=== PATIENT | female | born 1940 | race Caucasian/White ===

== ENCOUNTER 2020-03-30 12:30 | Outpatient (RCR) | payer MEDICARE, MEDICAID, SELFPAY ==
--- NOTE | 2020-01-09 11:33 | PTOPEVAL ---
PHYSICAL THERAPY EVALUATION AND PLAN OF CARE 01-09-2020 Thank you for referring Jud Erwin to [facility], for the diagnosis of B LE lymphedema.? She is scheduled to be seen for therapy? 3 x/week for 6 weeks. Please review, sign, date and return this plan of care DEL. I agree with and certify that the following plan of care is medically necessary. Referring Physician Date Referring Provider: ISAEL DianaPT Outpatient Evaluation Start: 01/09/20 10:22 Document 01/09/20 10:15 NUNO (Rec: 01/09/20 11:33 NUNO [id number]) Outpatient Past Medical History Past Medical History Source of Past Medical History Patient Neurological History Hx Neurological Disorders No Significant History Cardiovascular History Hx Atrial Fibrillation Yes Hx Coronary Stent Yes: 2015 Hx Hypertension Yes Hx Myocardial Infarction Yes Hx Pacemaker Yes: Feb 2019 Hx Other Cardiac Disorders Yes: follows with cardiology- saw recently Respiratory History Hx Sleep Apnea Yes: CPAP for sleeping Hx Other Respiratory Disorders Yes: SOB with exertions due to a-fib Gastrointestinal History Hx Cholecystectomy Yes Genitourinary History Hx Renal Disease Yes: kidney failure--follows with kidney dr Hx Other Genitourinary Disorders Yes: over active bladder, take med Musculoskeletal History Hx Back Pain Yes: spinal stenosis, arthritis Hx Fractures Yes: L tibia with cast/non surgery Hx Other Musculoskeletal Disorders Yes: B hip pain due to arthritis Endocrine History Hx Diabetes Yes: meds HEENT History Hx Other HEENT Disorders Yes: wear glasses Reproductive History Hx Hysterectomy Yes Other History Hx Other Surgeries Yes: L vein surgery of upper leg- vein closed Evaluation Information Problem Diagnosis B LE lymphedema Onset June 2019 Prior Level of Function Activity Level (Last 3 Months) Occupation retired Cooking Yes Cleaning No Laundry Yes Shopping No Driving No Home Setting Home Type Apartment,Single Level Environmental Barriers Stairs, None Living Situation Alone Support Available Hired Assistance,Physical Assist Available Mobility Assistive Devices (Used Last 3 Walker, Wheeled
--- NOTE | 2020-01-15 15:40 | PCPTNOTE ---
pt called and cancelled due to no transportation .
--- NOTE | 2020-01-17 14:41 | PCPTNOTE ---
Patient no showed for today's appointment. Called and left a voicemail reminding patient to call if she can not make hr appointment.
--- NOTE | 2020-01-27 08:36 | PCPTNOTE ---
pt called and canceled today's appt due to being ill;
--- NOTE | 2020-01-29 16:34 | PCPTNOTE ---
pt called and canceled, stated she ill; saw her dr and flu was negative, awaiting COVID testing results;
--- NOTE | 2020-01-30 13:30 | PCPTNOTE ---
pt called and canceled 2 weeks for appointments due to being positive for COVID;
--- NOTE | 2020-02-25 13:12 | PTOPEVAL ---
PHYSICAL THERAPY RE-EVALUATION AND UPDATED PLAN OF CARE 02-25-2020 Mrs. Erwin has received 5 PT sessions, from January 08 to today. She missed 4 weeks of treatment due to having COVID. She has weakness in both legs--L is weaker than the R. With transfer supine<> sit she requires assist with her legs. And with sit to stand, has to use her wheeled walker and both UE's. In supine, she is able to perform SLR on her R with 4 reps and unable to lift her L LE off mat. Her L knee active flexion is 75'. She continues to use the wheeled walker for ambulation and is SOB with ~ 100' of walking. With Jud's circumferential measurements of her LE's: R is 12.5 cm larger and L is .2 cm less. The goals were not achieved, due to her being ill and not able to attend therapy. PT is to continue treatment, 3x/week for 6 weeks. Thank you for referring Jud Erwin to [facility].? Please review, sign, date and return this updated plan of care [facility]. I agree with and certify that the following plan of care is medically necessary. Referring Physician Date Referring Provider: Marco Gordon PT Outpatient Re-Evaluation Document 02/25/20 12:32 NUNO (Rec: 02/25/20 13:09 NUNO [id number]) Subjective Information Jud reports: have Query Text:As Reported By Patient/ recovered from COVID, but Family still weak; legs are swollen- -ate some salty meat and did not take her water pill this AM, since coming here did not want to have to go to bathroom ; Pain Assessment Timing of Pain Assessment Timing of Pain Assessment Assessment Self Report Self Report Pain Level 0 Pain Score Pain Score 0: Self Report Lymphedema Evaluation Skin Inspection Location Left Lower Extremity,Right Lower Extremity Skin Observations Absence of Leg Hair, Hyperkeratosis, Hyperpigmentation,Hyperplasia, Hypoplastic, Concave Toes, Lipedema,Obesity,Shiny, Dry, Pale Skin,Swollen, Squared off Toes Palpation Findings Non-Pitting Edema,Pitting Edema Lymphedema Stage II Tissue Adhesion Location R and L thighs with soft tissue and no fibrotic tissue; increase tissue and edema over medial knees - L LE: reddish- brown discoloration over anterior tibia at 16 to 24 cm from bottom of foot x 9 cm med/ lateral measurement; fibrotic
--- NOTE | 2020-03-05 13:22 | PCPTNOTE ---
Patient called & cancelled scheduled appointment this date due to [pre field representative, Pt stated the wraps were too tight, pt removed them. Pt to see foot doctor. ]
--- NOTE | 2020-03-09 09:41 | PCPTNOTE ---
pt called and canceled today's appointment due to pain in her foot, took wrap off--hurt so bad she cried and thought about going to the ER. She called her dr and he told her to take them off. Stated she has some compression socks from previous and some one at home tried to help her with them and they could not get on. Discussed that she has to be measured for new compression. She stated her whole leg is smaller and looks good, just the lateral foot pain and toes are giving her pain; now gone since wrap removed. She has appointment Wed and plans to be here then.
--- NOTE | 2020-03-19 12:40 | PCPTNOTE ---
Pt called and canceled due to afib.
--- NOTE | 2020-03-23 09:16 | PCPTNOTE ---
Due to pt cancelling last , called patient today to check on her. Pt stated she was doing ok and would be able to make her appointment today.
--- NOTE | 2020-03-25 14:38 | PCPTNOTE ---
pt canceled today's appt;
--- NOTE | 2020-04-01 09:35 | PCPTNOTE ---
PHYSICAL THERAPY DISCHARGE 04-01-2020 Attending Provider: Marco Gordon DPM Patient:Jud Erwin Date of :1940 Mrs. Erwin has received a total of 14 PT sessions, from January 09, 2020 to March 30, 2020, for the diagnosis of B LE lymphedema. During this time frame, she called/canceled multiple appointments due to being ill and missed about 4 weeks, due to having COVID and recovery. Goals were completed for education of lymphedema self management, skin care and compression garments. Jud obtained and is independent with R and L lower leg [place] Classic Leg pieces and foot pieces for compression to her lower legs, to maintain her lymphedema. She has improved since the last reevaluation: no longer reports pain in her legs; active L knee flexion is 90' and improved strength of R and L hip and knee, but she is not able to lift her L leg onto the mat without use of her UE's. And she still requires assist to get her L leg in/out of the car. The circumferential measurements of her LE's, from bottom of foot up 68 cm: R is 879.5 cm, increased from initial eval by 28.4 cm and L is 883.9 cm, decreased by 22.7 cm. There is less redness over her L LE, except over the original area of redness- is now a mild redness over anterior montes ~ 8 cm x 7 cm. The goals have been partially met. Thank you for referring Mrs. Erwin to [facility]. Please review, sign, date and return this discharge summary DEL. I have been updated about the patient's current status and I agree with discharge from the above service at this time. Referring Physician Date
== END 2020-04-01 13:37 | disposition home or self-care (01) ==
LOC: ANHPT 12:30
PROVIDERS: PCP Internal Medicine Infectious Disease
DX: I89.0 Lymphedema, not elsewhere classified (principal)
CPT/HCPCS: 29581; 97016; 97140; 97161

== ENCOUNTER 2021-04-06 12:19 | Emergency (ER) | payer MEDICARE, MEDICAID, SELFPAY ==
[2021-04-06] VITALS (27 sets, daily range): BP systolic 137–189; BP diastolic 57–90; PULSE 65–91; RESP 14–26; TEMP 36.7; O2SAT 96–100
--- NOTE | ~2021-04-06 | XR_ITS ---
EXAMINATION: XR chest 1V portable EXAM DATE: 04/06/2021 14:26 INDICATION: COVID +, chest pain. TECHNIQUE: Portable AP frontal chest x-ray was obtained. There is no prior study for comparison. FINDINGS: There is a dual lead pacemaker/AICD seen with leads projecting over the expected locations of the right atrial appendage and right ventricle. The lungs are clear. There are no pleural effusio ns. The cardiomediastinal silhouette is within normal limits. There is no pneumothorax suspected. The bones and soft tissues are unremarkable. IMPRESSION: No acute cardiopulmonary findings. Reviewed, dictated and finalized at location G. BOTOMY TECHNOLOGIST
--- NOTE | 2021-04-06 12:25 | ECG_ITS ---
Measurements Intervals [place] Rate: 86 P: 86 SD: 143 QRS: 9 QRSD: 98 T: 42 QT: 395 QTc: 475 Interpretive Statements SINUS RHYTHM ATRIAL PREMATURE COMPLEX INCOMPLETE RIGHT BUNDLE BRANCH BLOCK MINIMAL Q WAVES- HIGH LATERAL LEADS BORDERLINE ST-T WAVE ABNORMALITY- INF/HIGH LAT LEADS BORDERLINE ECG Electronically Signed On 04-06-2021 12:51:04 PRECAST WORKER by Korey Avery D.O.
--- NOTE | 2021-04-06 12:28 | PC.NURSE ---
pt was given 324 asa and 1 spray of nitro in ambulance
[2021-04-06 12:44] LABS: Basophils Percent Auto 0.6 % (0.2-1.2); Eosinophils Absolute Auto 0.3 K/mm3 (0-0.3); Eosinophils Percent Auto 4.3 % (0-4.4); Hematocrit 36.2 % (37.0-47.0); Hemoglobin 11.9 g/dL (12.0-15.0); Immature Granulocyte Absolute 0.03 K/mm3 (0.00-0.031); Immature Granulocyte Percent A 0.5 % (0-0.5); Lymphocytes Absolute Auto 1.75 K/mm3 (0.9-3.2); Lymphocytes Percent Auto 27.7 % (18.3-44.2); Mean Corpuscular HGB Conc 32.9 g/dl (32-36); Mean Corpuscular Hemoglobin 34.3 pg (26-34); Mean Corpuscular Volume 104.3 fl (80-100); Mean Platelet Volume 10.5 fl (7.4-10.4); Monocytes Absolute Auto 0.6 K/mm3 (0.1-0.6); Monocytes Percent Auto 9.7 % (2.6-8.5); Neutrophils Absolute Auto 3.6 K/mm3 (1.3-6.7); Neutrophils Percent Auto 57.2 % (45.5-73.1); Platelet Count Result 329 k/mm3 (150-375); Red Blood Count 3.47 M/mm3 (4.2-5.4); Red Cell Distribution Width 16.8 % (11.5-14.5); White Blood Count 6.3 K/mm3 (4.5-10.0)
[2021-04-06 12:56] LABS: Alanine Aminotransferase 25 U/L (4-35); Alkaline Phosphatase 139 U/L (38-126); Anion Gap 10 mmol/L (8-16); Aspartate Amino Transferase 33 U/L (14-36); Bilirubin,Total 0.5 mg/dL (0.2-1.3); Blood Urea Nitrogen 33 mg/dL (7-17); Calcium 9.2 mg/dL (8.4-10.2); Carbon Dioxide 27 mmol/L (22-30); Chloride 104 mmol/L (98-107); Estimated CRCL calculation 45 ml/min; Estimated Glomerular Filt Rate 39; Glucose 110 mg/dL (65-110); Lipase 128 U/L (23-300); Potassium 3.7 mmol/L (3.4-5.0); Sodium 141 mmol/L (137-145)
[2021-04-06 12:57] LABS: INR 1.6; Prothrombin Time 18.9 Seconds (11.1-14.7)
[2021-04-06 12:58] LABS: Partial Thromboplastin Time 32.7 SECONDS (22.3-36.8)
[2021-04-06 13:08] LABS: Troponin I < 0.012 ng/mL (0.000-0.034)
--- NOTE | 2021-04-06 19:17 | PC.NURSE ---
COVID POSITIVE OF 04/01/2021.
--- NOTE | 2021-04-06 22:20 | ED.CHESTPAIN ---
HPI - Chest Pain General Chief Complaint: Chest Pain Stated Complaint: chest pain Time Seen by Provider: 04/06/21 19:13 History of Present Illness HPI narrative: Patient is an 80-year-old female who presents ER with central chest pain. Began earlier in the day after waking up around 6 AM. Lasted for couple minutes. She reports she did have a brief episode underneath her left breast going to her side that lasted a couple minutes as well. No fevers or chills or sweats. Does currently have COVID. She got up and did some PT and felt some mild shortness of breath but no recurrence of chest pain. No loss of consciousness. No hemoptysis. No lower extremity swelling. Patient takes Coumadin. Patient can report no modifying factors for her chest pain. Related Data Allergies Allergy/AdvReac Type Severity Reaction Status Date / Time clonidine [From Catapres] Allergy Swelling Verified 04/06/21 19:14 of Lip/Tongue/Throat Review of Systems Review of Systems: All systems reviewed & are unremarkable except as noted in HPI and below Constitutional: Constitutional: Denies chills, Reports fatigue and Denies fever(s) ENT: Denies nasal congestion and Denies sore throat Cardiovascular: Cardiovascular: Reports chest pain, Denies rapid heart rate and Denies radiating jaw, neck or arm pain Respiratory: Respiratory: Denies chest congestion, Denies cough, Reports dyspnea and Denies wheezing Gastrointestinal: Gastrointestinal: Denies abdominal pain, Denies nausea and Denies vomiting Musculoskeletal: Musculoskeletal: Denies joint swelling and Denies muscle cramps Neurologic: Denies headache(s), Denies focal weakness and Denies numbness PMF Past Medical History Medical History (Updated 04/06/21 @ 22:59 by Landry Moe MD) Anxiety CAD (coronary atherosclerotic disease) Diabetes Gout History of atrial fibrillation Hypertension Obstructive sleep apnea Surgical History Surgical History (Updated 04/06/21 @ 22:23 by Landry Moe MD) Pacemaker Social History Social History (System 06/18/19 @ 12:20 by Natalie Weinberg) Smoking status: Never smoker Alcohol intake: never Exam Narrative: GENERAL: Chronically ill-appearing, morbidly obese, and in no acute distress. HEAD: Normocephalic, atraumatic. ENT: Mucous membranes moist. CHEST: Clear to auscultation. No respiratory distress. Anterior chest wall tenderness with light palpation that patient reports reproduces her chest discomfort. HEART: Regular rate and rhythm. Normal peripheral pulses. ABDOMEN: Soft, nontender, nondistended. EXTREMITIES: Normal range of motion. 1+ edema. SKIN: Warm, dry, no rash. NEURO: Alert and oriented x3. PSYCH: Normal mood and affect. Course Course Emergency Course: Patient resting comfortably. No chest pain here. No tachycardia. Oxygen saturation 100% on room air. Discussed [facility]. Plan is to start a Lovenox bridge and they will [facility]. Patient verbalized understanding treatment plan. Discharge. Vital Signs Vital signs: Vital Signs Temperature 98.1 F 04/06/21 12:26 Pulse Rate 87 04/06/21 12:26 Respiratory Rate 16 04/06/21 12:26 Blood Pressure 175/78 H 04/06/21 12:26 Pulse Oximetry 100 04/06/21 12:26 Temperature 98.1 F 04/06/21 12:26 Pulse Rate 79 04/06/21 19:09 Respiratory Rate 18 04/06/21 19:09 Blood Pressure 160/68 H 04/06/21 19:09 Pulse Oximetry 97 04/06/21 19:09 MDM - Chest Pain Lab Data Result diagrams: 04/06/21 12:37 04/06/21 12:37 Labs: Lab Results 04/06/21 04/06/21 04/06/21 Range/Units 12:37 12:37 12:37 WBC 6.3 (4.5-10.0) K/mm3 RBC 3.47 L (4.2-5.4) M/mm3 Hgb 11.9 L (12.0-15.0) g/dL Hct 36.2 L (37.0-47.0) % MCV 104.3 H (80-100) fl MCH 34.3 H (26-34) pg MCHC 32.9 (32-36) g/dl RDW 16.8 H (11.5-14.5) % Plt Cou
[2021-04-06 22:32] LABS: Troponin I < 0.012 ng/mL (0.000-0.034)
[2021-04-06] MEDS: ENOXAPARIN 80 MG/0.8 ML SYRINGE 130 MG SUB-Q (23:29)
--- NOTE | 2021-04-06 23:46 | PC.NURSE ---
called [facility] to request transport. ETA [id number] called [facility] to request transport. declined
[2021-04-07 00:08] VITALS: BP 163/69; PULSE 76; RESP 18; O2SAT 100
--- NOTE | 2021-04-07 01:33 | PC.NURSE ---
[facility] here.
== END 2021-04-07 01:45 ==
PROVIDERS: Emergency Medicine; Emergency Provider Emergency Medicine; PCP Internal Medicine Infectious Disease
DX: R07.89 Other chest pain (principal); R79.1 Abnormal coagulation profile; U07.1 COVID-19; I25.10 Atherosclerotic heart disease of native coronary artery without angina pectoris; E11.9 Type 2 diabetes mellitus without complications; I48.91 Unspecified atrial fibrillation; I10 Essential (primary) hypertension; G47.33 Obstructive sleep apnea (adult) (pediatric); M10.9 Gout, unspecified; Z79.01 Long term (current) use of anticoagulants; Z95.0 Presence of cardiac pacemaker; I49.1 Atrial premature depolarization; I45.10 Unspecified right bundle-branch block; R94.31 Abnormal electrocardiogram [ECG] [EKG]
CPT/HCPCS: 36415; 71045; 80053; 83690; 84484; 85025; 85610; 85730; 93005; 96372; 99284; J1650

== ENCOUNTER 2021-12-27 12:30 | Inpatient (IN) | payer MEDICARE, MEDICAID, SELFPAY ==
[2021-12-27] VITALS (20 sets, daily range): BP systolic 136–158; BP diastolic 45–89; PULSE 92–102; RESP 15–26; TEMP 36.4–37.6; O2SAT 91–96; BMI 38.9
--- NOTE | ~2021-12-27 | CT_ITS ---
EXAMINATION: CT abdomen pelvis wo con DATE: 12/27/2021 14:50 INDICATION: concern for possible IVC thrombus on RP u/s TECHNIQUE: Computed tomography (CT) of the abdomen and pelvis was performed without intravenous contr ast. Automated exposure control and iterative reconstruction technique were employed. The dose-length product was 1572.02 mGy-cm. COMPARISON: None. FINDINGS: Lower thorax: Coronary artery, mitral, and aortic calcification. Incompletely visualized pacing wires . Small hiatal hernia Liver: Normal. Biliary/Gallbladder: Gallbladder is absent. No bile duct dilation. Pancreas: Atrophy. Spleen: Granulomatous calcification. Adrenals:No mass. Kidneys: Bilateral atrophy. Perinephric stranding, greater on the right. Bilateral pelviectasis. GI tract: No small or large bowel dilation. Not visualized Diverticulosis without diverticulitis. Mesentery/Peritoneum: No ascites, mass, or free air. Retroperitoneum: No mass. Atherosclerotic abdominal aortic and/or arterial calcifications. Pelvis: Uterus is absent. Bladder wall thickening and inflammatory change. Nondependent gas bubble po ssibly within the gallbladder wall. Layering hyperdense bladder debris. Soft Tissues: Lower abdominal injection granulomas. Fatty atrophy left pelvic and hip muscles. Bones: No acute osseous finding. Presumed chronic endplate deformities and mild anterior wedge compr ession fractures at T11, L1, and L3. 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 Gas in the urinary bladder lumen/wall, with bladder wall inflammatory change-in the absence of history of recent catheterization or instrumentati on this finding is suspicious for emphysematous cystitis. Likely proteinaceous urinary bladder debris (noting that hemorrhagic or crystalline debris appears similar). Asymmetric right perinephric strand ing raises concern for ascending infection on the right. Reviewed, dictated and finalized at location K. 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 Gas in the urinary keshia dder lumen/wall, with bladder wall inflammatory change-in the absence of histor y of recent catheterization or instrumentation this finding is suspicious for e mphysematous cystitis. Likely proteinaceous urinary bladder debris (noting that hemorrhagic or crystalline debris appears similar). Asymmetric right perinephr ic stranding raises concern for ascending infection on the right.
--- NOTE | ~2021-12-27 | US_ITS ---
EXAMINATION: US venous doppler [facility] DATE: 12/27/2021 17:47 INDICATION: edema, hx DVT . TECHNIQUE: Grayscale images without and with compression and Doppler images of the bilateral lower ex tremity veins were obtained. COMPARISON: None FINDINGS: The right common femoral vein, profunda (deep) femoral vein, femoral vein, popliteal vein, peroneal v ein, posterior tibial veins, and greater saphenous vein are patent. The left common femoral vein, profunda femoral vein, femoral vein, popliteal vein, peroneal vein, pos terior tibial veins, and greater saphenous vein are patent. IMPRESSION: 1. Patent bilateral lower extremity veins. No evidence of deep venous thrombosis. Reviewed, dictated and finalized at location K. IMPRESSION: 1. Patent bilateral lower extremity veins. No evidence of deep venous thrombos is.
--- NOTE | ~2021-12-27 | XR_ITS ---
EXAMINATION: XR chest 2V DATE: 12/27/2021 13:43 INDICATION: Chest pain. TECHNIQUE: Frontal and lateral views of the chest were obtained. COMPARISON: Chest single view 04/06/2021 FINDINGS: A calcified right lung nodule and calcified right hilar and mediastinal lymph nodes are con sistent with old granulomatous disease. No pleural effusion or pneumothorax. The heart size is normal . There is a left chest wall pacer with leads in the superior vena cava and right ventricle. IMPRESSION: 1. No acute cardiopulmonary disease. 2. Pacer lead in superior vena cava. Reviewed, dictated and finalized at location A.
--- NOTE | ~2021-12-27 | XR_ITS ---
EXAMINATION: XR abdomen/kub 1V DATE: 12/31/2021 09:49 INDICATION: Abdominal pain. Constipation. TECHNIQUE: A supine view of the abdomen on 2 radiographs was obtained. COMPARISON: CT abdomen and pelvis 12/27/2021 FINDINGS: There are no dilated loops of bowel. There is a small volume of stool in the colon. Surgica l clips in the right upper quadrant are likely from cholecystectomy. There are phleboliths in the pel vis. IMPRESSION: 1. Normal bowel gas pattern. Reviewed, dictated and finalized at location A.
--- NOTE | 2021-12-27 12:55 | ECG_ITS ---
Measurements Intervals [place] Rate: 97 P: 79 FL: 150 QRS: -24 QRSD: 110 T: 68 QT: 302 QTc: 384 Interpretive Statements SINUS RHYTHM BORDERLINE LEFT AXIS DEVIATION [QRS AXIS < -20] MINIMAL NONSPECIFIC T-WAVE ABNORMALITY COMPARED TO ECG 04/06/2021 12:34:01 NO SIGNIFICANT CHANGE Electronically Signed On 12-28-2021 13:07:15 CDT by Keri Frias M.D.
--- NOTE | 2021-12-27 13:09 | ED.GENADULT ---
HPI - General Adult General Chief complaint: Unspecified Stated complaint: weakness Time Seen by Provider: 12/27/21 12:35 History of Present Illness HPI narrative: Patient is an 81-year-old female with a history of CAD, A. fib on Eliquis, hypertension, DARCY presenting with multiple complaints. Patient states that she has been feeling generally weak for the last week. States that she has had intermittent nausea and vomiting for the last 2 days. She also complains of intermittent chest pain for the last week as well as a headache. States she has some exertional shortness of breath but this is baseline for her. Patient resides at a nursing facility and reportedly had an RP ultrasound done several days ago which was concerning for a possible IVC thrombus. Patient states that she has been compliant with her anticoagulation. She denies vision changes, focal numbness or weakness, cough, lightheadedness, abdominal pain, diarrhea, dysuria. Patient states that she is concerned she is dehydrated. Related Data Home Medications Medication Instructions Recorded Confirmed allopurinol 300 mg tablet 300 mg PO DAILY 12/27/21 12/27/21 apixaban 5 mg tablet (Eliquis) 5 mg PO BID 12/27/21 12/28/21 calcitriol 0.25 mcg capsule 0.25 mcg PO EVERY OTHER DAY 12/27/21 12/28/21 diltiazem HCl 360 mg 360 mg PO DAILY 12/27/21 12/28/21 capsule,extended release 24 hr dofetilide 250 mcg capsule 250 mcg PO DAILY 12/27/21 12/27/21 furosemide 80 mg tablet 80 mg PO DAILY 12/27/21 12/27/21 insulin lispro 100 unit/mL See Protocol subcut ACHS 12/27/21 12/27/21 subcutaneous solution lactulose 10 gram/15 mL oral 30 ml PO BID 12/27/21 12/27/21 solution (Enulose) magnesium oxide 400 mg (241.3 mg 400 mg PO BID 12/27/21 12/27/21 magnesium) tablet nystatin 100,000 unit/gram topical 100,000 unit topical PRN 12/27/21 12/27/21 powder (Nyamyc) pantoprazole 20 mg tablet,delayed 20 mg PO DAILY 12/27/21 12/27/21 release potassium chloride 20 mEq 20 meq PO DAILY 12/27/21 12/28/21 tablet,extended release potassium chloride 20 mEq 20 meq PO DAILY 12/27/21 12/27/21 tablet,extended release(part/cryst) tramadol 50 mg tablet 50 mg PO HS 12/27/21 12/27/21 Allergies Allergy/AdvReac Type Severity Reaction Status Date / Time clonidine [From Catapres] Allergy Swelling Verified 04/06/21 19:14 of Lip/Tongue/Throat Review of Systems Review of Systems: All systems reviewed & are unremarkable except as noted in HPI and below PMFSH Past Medical History Medical History (Updated 12/27/21 @ 23:33 by Kendal Norris PA-C) Anxiety Arthritis Chronic anemia Chronic anticoagulation Chronic kidney disease, stage 3 Coronary artery disease Folate deficiency Gastroesophageal reflux disease Gout Hypertension Obstructive sleep apnea Overactive bladder Paroxysmal atrial fibrillation Spinal stenosis Type 2 diabetes mellitus Venous insufficiency Vitamin B12 deficiency Surgical History Surgical History (Updated 12/27/21 @ 23:30 by Kendal Norris PA-C) History of coronary artery stent placement History of hysterectomy History of permanent cardiac pacemaker placement History of tonsillectomy Family History Family History Mother Diabetes mellitus AA (aortic aneurysm) Sibling AA (aortic aneurysm) Breast cancer Social History Social History (Updated 12/27/21 @ 23:30 by Kendal Norris PA-C) Social History: Healthcare power of tax associate attorney: Huong Whittington, son. Code status: Full code. Smoking status: Never smoker Alcohol intake: never Substance use: never Additional living arrangements comments: . She has 6 children. Resident at [facility]. Spiritual care concerns: No Exam Narrative: GENERAL: Appears chronically ill, alert, in no acute distress HEAD: Normocephalic, atraumatic. EYES: PERRLA and EOMI. ENT: Nares clear, no rhinorrhea or epistaxis. Mucou
[2021-12-27 13:26] LABS: Basophils Absolute Auto 0.1 K/mm3 (0.0-0.1); Basophils Percent Auto 0.6 % (0.2-1.2); Eosinophils Absolute Auto 0.1 K/mm3 (0-0.3); Eosinophils Percent Auto 0.9 % (0-4.4); Hematocrit 32.3 % (37.0-47.0); Hemoglobin 10.3 g/dL (12.0-15.0); Immature Granulocyte Absolute 0.08 K/mm3 (0.00-0.031); Immature Granulocyte Percent A 0.6 % (0-0.5); Lymphocytes Absolute Auto 0.89 K/mm3 (0.9-3.2); Lymphocytes Percent Auto 7.1 % (18.3-44.2); Mean Corpuscular HGB Conc 31.9 g/dl (32-36); Mean Corpuscular Volume 112.9 fl (80-100); Mean Platelet Volume 11.1 fl (7.4-10.4); Monocytes Absolute Auto 1.2 K/mm3 (0.1-0.6); Monocytes Percent Auto 9.2 % (2.6-8.5); Neutrophils Absolute Auto 10.2 K/mm3 (1.3-6.7); Neutrophils Percent Auto 81.6 % (45.5-73.1); Platelet Count Result 372 k/mm3 (150-375); Red Blood Count 2.86 M/mm3 (4.2-5.4); Red Cell Distribution Width 17.1 % (11.5-14.5); White Blood Count 12.5 K/mm3 (4.5-10.0)
[2021-12-27 13:40] LABS: INR 2.2; Prothrombin Time 23.9 Seconds (11.1-14.7)
[2021-12-27 13:52] LABS: Platelet Estimate Adequate (Adequate); Rouleaux 1+ (NORMAL)
[2021-12-27 13:53] LABS: Anisocytosis 1+ (NORMAL); Hypochromasia 2+ (NORMAL); Schistocytes 1+ (NORMAL)
[2021-12-27 14:25] LABS: Alanine Aminotransferase 24 U/L (6-35); Albumin Level 3.9 g/dL (3.5-5.1); Alkaline Phosphatase 127 U/L (38-126); Anion Gap 8 mmol/L (8-16); Aspartate Amino Transferase 28 U/L (14-36); Bilirubin,Total 0.9 mg/dL (0.2-1.3); Blood Urea Nitrogen 44 mg/dL (7-17); Calcium 9.1 mg/dL (8.4-10.2); Carbon Dioxide 30 mmol/L (22-30); Chloride 99 mmol/L (98-107); Estimated CRCL calculation 33 ml/min; Estimated Glomerular Filt Rate 29; Glucose 160 mg/dL (65-110); Lipase 33 U/L (23-300); Potassium 4.1 mmol/L (3.4-5.0); Sodium 137 mmol/L (137-145)
[2021-12-27] MEDS: SODIUM CHLORIDE 0.9% IV 1,000 ML 999 ML IV CONT (14:26)
[2021-12-27] MEDS: ASPIRIN 81 MG CHEWABLE TABLET 324 MG PO (15:08)
[2021-12-27 15:10] LABS: Add Urine Microscopic? YES; Appearance Urine Cloudy (Clear); Bacteria Urine Trace /hpf; Bilirubin Urine Negative (Negative); Blood Urine 1+ (Negative); Budding Yeast Urine Present /hpf; Color Urine Yellow (Yellow); Glucose Urine UA Negative (Negative); Ketones Urine Negative (Negative); Leukocyte Esterase Ur 3+ LEU/UL (Negative); Mucus Urine Rare /lpf; Nitrate Urine Negative (Negative); Protein Urine Negative (Negative); Specific Grav Ur 1.009 (1.001-1.035); Urobilinogen Urine Negative mg/dL (<2.0); WBC Clumps Urine Present /HPF; WBC Urine >75 /hpf
--- NOTE | 2021-12-27 16:00 | PM.IMHP ---
H&P: HPI History of Present Illness Date/Time: 12/27/21 16:00 Chief Complaint: Abnormal ultrasound. Narrative: This is a very pleasant 81-year-old female with multiple medical problems including coronary artery disease, paroxysmal atrial fibrillation on chronic anticoagulation hypertension, obstructive sleep apnea, type 2 diabetes mellitus, chronic kidney disease, and other comorbidities who presented to the emergency department via EMS from [facility] for evaluation of an abnormal ultrasound done several days ago. She had been complaining of back pain for nearly a week's time and a retroperitoneal ultrasound was ordered for evaluation. The left kidney was poorly visualized, and the right was unremarkable. There was no evidence of proximal abdominal aortic aneurysm. An echogenic area was seen within the proximal IVC measuring 2.8 x 2 x 1.4 centimeters concerning for possible thrombus and she was sent in today for evaluation. After long discussions with the patient, it sounds as though the back pain that she had been having is more so in the lower back and she was worried that she either had a kidney stone or kidney infection as she has had poor appetite, nausea, chills, and a low-grade fever. She has had some mild dysuria but nothing significant and she also reports that her urine was pink tinged several days ago. She has not been eating or drinking much over the last week due to the symptoms. Her temperature was 99.7? on arrival to the ER with stable heart rate and blood pressures. White blood cell count was 12.5 and her BUN and creatinine were elevated from baseline. UA is concerning for UTI and given her symptomatology a CT of the abdomen/pelvis was ordered which showed gas in the urinary bladder (patient was straight catheterized for this specimen) and proteinaceous urinary bladder debris as well as asymmetric right perinephric stranding raising concern for ascending infection on the right. She is being admitted in this setting for IV hydration IV antibiotics. Regarding the possible IVC for thrombus, this seems unlikely as she is on chronic anticoagulation and she has no symptoms. Review of Systems Review of Systems: Twelve systems were reviewed. No headache or neck ache. She denies cold and flu symptoms. No cough. No chest pain, pleuritic pain, palpitations, or sensations of racing heart. She denies orthopnea, paroxysmal nocturnal dyspnea, and significant lower extremity edema. No calf pain or tenderness. Appetite has not been great as detailed above. She has issues with overactive bladder and is frequently incontinent. Denies vomiting. No diarrhea. Except as documented, all other systems were reviewed and are negative. [facility] Past Medical History Medical History (Updated 12/27/21 @ 23:33 by Kendal Norris PA-C) Anxiety Arthritis Chronic anemia Chronic anticoagulation Chronic kidney disease, stage 3 Coronary artery disease Folate deficiency Gastroesophageal reflux disease Gout Hypertension Obstructive sleep apnea Overactive bladder Paroxysmal atrial fibrillation Spinal stenosis Type 2 diabetes mellitus Venous insufficiency Vitamin B12 deficiency Surgical History Surgical History (Updated 12/27/21 @ 23:30 by Kendal Norris PA-C) History of coronary artery stent placement History of hysterectomy History of permanent cardiac pacemaker placement History of tonsillectomy Family History Family History Mother Diabetes mellitus AA (aortic aneurysm) Sibling AA (aortic aneurysm) Breast cancer Social History Social History (Updated 12/27/21 @ 23:30 by Kendal Norris PA-C) Social History: Healthcare power of deputy commonwealth's attorney: Huong Whittington, son. Code status: Full code. Smoking status: Never smoker Alcohol intake: never Substance use: never Additional living arrangements comments: . She has 6 children. Resident at [facility]. Spirit
[2021-12-27 17:00] LABS: Lactic Acid Reflex 0.8 mmol/L (0.7-2.0)
[2021-12-27 21:43] LABS: Troponin I 0.059 ng/mL (0.000-0.034)
--- NOTE | 2021-12-27 21:50 | ADMGEN ---
This patient, Jud Erwin, was admitted to [facility] Surg Room 332-01. Patient/family oriented to hospital policies and general routines including ID bracelet, bed and alarms, visiting hours, pain management, procedures, bathroom and other care routines, personal items, smoking policy, room service/diet, and visiting hours. Information on how to activate the Rapid Response Team has been discussed. Patient/Family are encouraged to report perceived risks to care and to ask questions if they do not understand what they are told or what they should do.
[2021-12-27] MEDS: SODIUM CHLORIDE 0.9% IV 1,000 ML 125 ML IV CONT (22:34)
[2021-12-28] VITALS (11 sets, daily range): BP systolic 147–175; BP diastolic 57–72; PULSE 82–99; RESP 18–24; TEMP 36.1–37.2; O2SAT 91–100; BMI 38.9
[2021-12-28 01:37] LABS: Troponin I 0.073 ng/mL (0.000-0.034)
--- NOTE | 2021-12-28 01:49 | PC.NURSE ---
Pt arrived to the unit at approximately 2150. Pt has been resting for the shift so far. [facility] was contacted to aide in med/rec at 2228. They said they would call back and we are still waiting for the return call. Pt placed on telemetry per order. Pt has had two elevated troponins. Kendal and Leroy notified and documented. Will continue to monitor pt and labs.
[2021-12-28 05:21] LABS: Hematocrit 28.8 % (37.0-47.0); Hemoglobin 9.4 g/dL (12.0-15.0); Mean Corpuscular HGB Conc 32.6 g/dl (32-36); Mean Corpuscular Hemoglobin 35.7 pg (26-34); Mean Corpuscular Volume 109.5 fl (80-100); Mean Platelet Volume 10.7 fl (7.4-10.4); Platelet Count Result 311 k/mm3 (150-375); Red Blood Count 2.63 M/mm3 (4.2-5.4); Red Cell Distribution Width 16.4 % (11.5-14.5); White Blood Count 10.3 K/mm3 (4.5-10.0)
[2021-12-28 05:31] LABS: Iron 31 ug/dL (37-170)
[2021-12-28 05:42] LABS: Percent Iron Saturation 12 % (20-50)
[2021-12-28 05:43] LABS: Hemoglobin A1C 7.2 % (<5.7)
[2021-12-28 05:49] LABS: Troponin I 0.079 ng/mL (0.000-0.034)
[2021-12-28 07:02] LABS: Alanine Aminotransferase 20 U/L (6-35); Albumin Level 3.6 g/dL (3.5-5.1); Alkaline Phosphatase 112 U/L (38-126); Anion Gap 11 mmol/L (8-16); Aspartate Amino Transferase 26 U/L (14-36); Bilirubin,Total 0.7 mg/dL (0.2-1.3); Blood Urea Nitrogen 40 mg/dL (7-17); Calcium 8.7 mg/dL (8.4-10.2); Carbon Dioxide 25 mmol/L (22-30); Chloride 100 mmol/L (98-107); Estimated CRCL calculation 37 ml/min; Estimated Glomerular Filt Rate 33; Glucose 131 mg/dL (65-110); Potassium 3.7 mmol/L (3.4-5.0); Sodium 136 mmol/L (137-145)
[2021-12-28 07:41] LABS: Glucose Point of Care 115 mg/dl (65-105)
[2021-12-28 08:13] LABS: Folic Acid 8.9 ng/mL (2.76->20); Vitamin B12 > 1000.0 pg/mL (239-931)
[2021-12-28] MEDS: APIXABAN 5 MG TABLET PO ×2 (08:14→16:35)
[2021-12-28] MEDS: allopurinoL 300 MG TABLET PO (08:14)
[2021-12-28] MEDS: LACTULOSE 20 GM/30 ML UDC PO ×2 (08:14→16:34)
[2021-12-28] MEDS: MAGNESIUM OXIDE 400 MG TABLET PO ×2 (08:15→16:35)
[2021-12-28] MEDS: PANTOPRAZOLE SOD SESQUIHYDRATE 20 MG TAB PO (08:15)
[2021-12-28] MEDS: dilTIAZem HCL CD 180 MG CAP.ER.24H 360 MG PO (08:15)
[2021-12-28 11:37] LABS: Glucose Point of Care 121 mg/dl (65-105)
--- NOTE | 2021-12-28 13:52 | PM.IMPN ---
Progress Note: A&P Assessment and Plan (1) Pyelonephritis: Code(s): N12 - Tubulo-interstitial nephritis, not specified as acute or chronic Status: Acute (2) Acute on chronic kidney failure: Code(s): N17.9 - Acute kidney failure, unspecified; N18.9 - Chronic kidney disease, unspecified Status: Acute (3) Dehydration: Code(s): E86.0 - Dehydration Status: Acute (4) Elevated troponin: Code(s): R77.8 - Other specified abnormalities of plasma proteins Status: Acute (5) Abnormal ultrasound: Code(s): R93.89 - Abnormal findings on diagnostic imaging of other specified body structures Status: Acute (6) Chronic anemia: Code(s): D64.9 - Anemia, unspecified Status: Acute (7) Paroxysmal atrial fibrillation: Code(s): I48.0 - Paroxysmal atrial fibrillation Status: Acute (8) Chronic anticoagulation: Code(s): 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 She reports mild dysuria and had pinkish colored urine over the weekend though that has since resolved. UA consistent with a UTI and CT of the abdomen/pelvis shows findings suspicious for ascending UTI on the right as well as gas in the urinary bladder which was most likely related to straight catheterization.? Proteinaceous bladder debris was also noted and urology consult may be prudent. She has been started on ceftriaxone and will continue with that, pending urine culture. Secondary to dehydration given poor oral intake for the last 1 week. No evidence of obstruction on CT. She will be judiciously hydrated with close monitoring of volume status and renal function. Avoid nephrotoxic agents. Troponin is mildly elevated though she is not having any chest pain whatsoever.? It is likely that this is elevated in the setting of her chronic kidney disease and other chronic illnesses. Retroperitoneal ultrasound done as an outpatient showed a small region in the proximal IVC which could represent a small thrombus. GFR is too low for CT of the chest today.? She is being hydrated overnight and hopefully her GFR well improve enough that we can get the imaging done for completeness sake. This? less likely as she has been on chronic anticoagulation for some time. Macrocytic anemia today with a hemoglobin of 10.3, hematocrit 32.3%, and an MCV of 112.9. Check iron studies, B12, and folate. Currently in a sinus rhythm. Continue anticoagulation for stroke prophylaxis. Initiate sliding scale insulin, Accu-Cheks, and hypoglycemic protocol. Check hemoglobin A1c. 12/28/21 WBC down tending w Rocephin afebrile blood and urine cx pending Cr improving mild axs trop bump 2/2 to sepsis LEE ANN on CKD PAF anemia, repeat trop ordered to ensure down trending hydralazine PRN Losartan to restart tomorrow as LEE ANN is anticipated to have resolved cont current care pending cultures and trop disp home w HHC vs SNF after recovery in a couple of days Subjective Date/time seen: 12/28/21 13:52 pt doing ok labs improving and feeling better presented to hospital w complaint of shaking chills Review of Systems Review of Systems: All systems reviewed & are unremarkable except as noted in HPI and below Exam Narrative: General: Well-developed, nontoxic-appearing female lying in bed. HEENT: Wearing corrective lenses. EOMI. Sclera anicteric. MMM Edentulous. Neck: no JVD. Respiratory: Respirations are nonlabored and lungs are clear to auscultation bilaterally. Cardiovascular: Regular rate and rhythm with S1-S2. Gastrointestinal: Abdomen is soft, obese, and nondistended with positive bowel sounds. Extremities: No cyanosis or clubbing. Trace lower extremity edema bilat
[2021-12-28] MEDS: SODIUM CHLORIDE 0.9% IV 1,000 ML 70 ML IV CONT (16:34)
[2021-12-28 16:43] LABS: Glucose Point of Care 134 mg/dl (65-105)
[2021-12-28 19:49] LABS: Troponin I 0.041 ng/mL (0.000-0.034)
[2021-12-28] MEDS: traMADol HCL (*CRX) 50 MG TABLET PO (21:14)
[2021-12-29] VITALS (8 sets, daily range): BP systolic 116–148; BP diastolic 51–57; PULSE 73–81; RESP 18–21; TEMP 36.5–37.1; O2SAT 93–100
--- NOTE | 2021-12-29 00:31 | PC.NURSE ---
Pt sleeping for most of shift. Pt compliant with medication. Pt has sporadic bruising on belly and legs. Pt states it is from blood thinners. Will continue to monitor pt.
[2021-12-29 06:08] LABS: Basophils Absolute Auto 0.1 K/mm3 (0.0-0.1); Basophils Percent Auto 0.7 % (0.2-1.2); Eosinophils Absolute Auto 0.2 K/mm3 (0-0.3); Eosinophils Percent Auto 2.2 % (0-4.4); Hematocrit 27.8 % (37.0-47.0); Hemoglobin 8.9 g/dL (12.0-15.0); Immature Granulocyte Absolute 0.09 K/mm3 (0.00-0.031); Immature Granulocyte Percent A 1.2 % (0-0.5); Lymphocytes Percent Auto 20.7 % (18.3-44.2); Mean Corpuscular Hemoglobin 35.9 pg (26-34); Mean Corpuscular Volume 112.1 fl (80-100); Mean Platelet Volume 11.3 fl (7.4-10.4); Monocytes Percent Auto 13.2 % (2.6-8.5); Neutrophils Absolute Auto 4.5 K/mm3 (1.3-6.7); Platelet Count Result 291 k/mm3 (150-375); Red Blood Count 2.48 M/mm3 (4.2-5.4); Red Cell Distribution Width 16.4 % (11.5-14.5); White Blood Count 7.3 K/mm3 (4.5-10.0)
[2021-12-29 06:20] LABS: Alanine Aminotransferase 21 U/L (6-35); Albumin Level 3.1 g/dL (3.5-5.1); Alkaline Phosphatase 92 U/L (38-126); Anion Gap 7 mmol/L (8-16); Aspartate Amino Transferase 23 U/L (14-36); Bilirubin,Total 0.4 mg/dL (0.2-1.3); Blood Urea Nitrogen 34 mg/dL (7-17); Calcium 8.2 mg/dL (8.4-10.2); Carbon Dioxide 27 mmol/L (22-30); Chloride 105 mmol/L (98-107); Estimated CRCL calculation 42 ml/min; Estimated Glomerular Filt Rate 39; Glucose 112 mg/dL (65-110); Potassium 3.6 mmol/L (3.4-5.0); Sodium 139 mmol/L (137-145)
[2021-12-29 06:54] LABS: Anisocytosis 1+ (NORMAL); Platelet Estimate Adequate (Adequate)
[2021-12-29 06:55] LABS: Ovalocytes 1+ (NORMAL)
[2021-12-29 06:56] LABS: Schistocytes None Seen (NORMAL)
[2021-12-29 07:06] LABS: Glucose Point of Care 146 mg/dl (65-105)
[2021-12-29 07:56] LABS: Glucose Point of Care 110 mg/dl (65-105)
[2021-12-29] MEDS: SODIUM CHLORIDE 0.9% IV 1,000 ML 70 ML IV CONT (08:46)
[2021-12-29] MEDS: LOSARTAN POTASSIUM 100 MG TABLET PO (08:47)
[2021-12-29] MEDS: APIXABAN 5 MG TABLET PO ×2 (08:47→17:48)
[2021-12-29] MEDS: LACTULOSE 20 GM/30 ML UDC PO ×2 (08:47→17:48)
[2021-12-29] MEDS: allopurinoL 300 MG TABLET PO (08:47)
[2021-12-29] MEDS: PANTOPRAZOLE SOD SESQUIHYDRATE 20 MG TAB PO (08:47)
[2021-12-29] MEDS: calcitrioL 0.25 MCG CAPSULE PO (08:47)
[2021-12-29] MEDS: MAGNESIUM OXIDE 400 MG TABLET PO ×2 (08:47→17:48)
[2021-12-29] MEDS: dilTIAZem HCL CD 180 MG CAP.ER.24H 360 MG PO (08:48)
[2021-12-29 11:10] LABS: Glucose Point of Care 162 mg/dl (65-105)
--- NOTE | 2021-12-29 16:05 | PM.IMPN ---
Progress Note: A&P Assessment and Plan (1) Pyelonephritis: Code(s): N12 - Tubulo-interstitial nephritis, not specified as acute or chronic Status: Acute (2) Acute on chronic kidney failure: Code(s): N17.9 - Acute kidney failure, unspecified; N18.9 - Chronic kidney disease, unspecified Status: Acute (3) Dehydration: Code(s): E86.0 - Dehydration Status: Acute (4) Elevated troponin: Code(s): R77.8 - Other specified abnormalities of plasma proteins Status: Acute (5) Abnormal ultrasound: Code(s): R93.89 - Abnormal findings on diagnostic imaging of other specified body structures Status: Acute (6) Chronic anemia: Code(s): D64.9 - Anemia, unspecified Status: Acute (7) Paroxysmal atrial fibrillation: Code(s): I48.0 - Paroxysmal atrial fibrillation Status: Acute (8) Chronic anticoagulation: Code(s): 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 She reports mild dysuria and had pinkish colored urine over the weekend though that has since resolved. UA consistent with a UTI and CT of the abdomen/pelvis shows findings suspicious for ascending UTI on the right as well as gas in the urinary bladder which was most likely related to straight catheterization.? Proteinaceous bladder debris was also noted and urology consult may be prudent. She has been started on ceftriaxone and will continue with that, pending urine culture. Secondary to dehydration given poor oral intake for the last 1 week. No evidence of obstruction on CT. She will be judiciously hydrated with close monitoring of volume status and renal function. Avoid nephrotoxic agents. Troponin is mildly elevated though she is not having any chest pain whatsoever.? It is likely that this is elevated in the setting of her chronic kidney disease and other chronic illnesses. Retroperitoneal ultrasound done as an outpatient showed a small region in the proximal IVC which could represent a small thrombus. GFR is too low for CT of the chest today.? She is being hydrated overnight and hopefully her GFR well improve enough that we can get the imaging done for completeness sake. This? less likely as she has been on chronic anticoagulation for some time. Macrocytic anemia today with a hemoglobin of 10.3, hematocrit 32.3%, and an MCV of 112.9. Check iron studies, B12, and folate. Currently in a sinus rhythm. Continue anticoagulation for stroke prophylaxis. Initiate sliding scale insulin, Accu-Cheks, and hypoglycemic protocol. Check hemoglobin A1c. 12/28/21 WBC down tending w Rocephin afebrile blood and urine cx pending Cr improving mild axs trop bump 2/2 to sepsis LEE ANN on CKD PAF anemia, repeat trop ordered to ensure down trending hydralazine PRN Losartan to restart tomorrow as LEE ANN is anticipated to have resolved cont current care pending cultures and trop disp home w HHC vs SNF after recovery in a couple of days 12/29/2021 interval history: patient with complaint low back pain and dysuria urine culture is growing E coli Delgado of the blood culture bottle is growing Gram-negative bacilli most likely E coli patient was treated with ceftriaxone 1 g q.day will escalate to 2 g q.day will follow-up on blood culture, will follow-up on the sensitivity,and culture will continue to monitor, will have a PT OT evaluate the patient and further recommendation to follow Subjective Date/time seen: 12/29/21 16:05 HPI:Narrative: This is a very pleasant 81-year-old female with multiple medical problems including coronary artery disease, paroxysmal atrial fibrillation on chronic anticoagulation hypertension, obstructive sleep apnea, type 2 diabetes mellitus,
[2021-12-29 16:31] LABS: Glucose Point of Care 145 mg/dl (65-105)
[2021-12-29] MEDS: traMADol HCL (*CRX) 50 MG TABLET PO (21:44)
[2021-12-29 22:08] LABS: Glucose Point of Care 135 mg/dl (65-105)
--- NOTE | 2021-12-30 00:32 | PC.NURSE ---
Pt reported dry and itchy skin. Lotion applied and pt stated that helped. Pt has no complaints at this time. Will continue to monitor pt.
[2021-12-30 05:45] VITALS: PULSE 71; RESP 14; O2SAT 94
[2021-12-30] MEDS: SODIUM CHLORIDE 0.9% IV 1,000 ML 70 ML IV CONT (05:56)
[2021-12-30 06:00] VITALS: BP 107/74; PULSE 69; RESP 18; TEMP 36.1; O2SAT 98
[2021-12-30 07:45] LABS: Glucose Point of Care 114 mg/dl (65-105)
[2021-12-30] MEDS: LOSARTAN POTASSIUM 100 MG TABLET PO (09:52)
[2021-12-30] MEDS: cefTRIAXone 2 GM in SODIUM CHLORIDE 0.9% IV 100 ML 200 ML IVPB (09:52)
[2021-12-30] MEDS: MAGNESIUM OXIDE 400 MG TABLET PO ×2 (09:52→17:07)
[2021-12-30] MEDS: PANTOPRAZOLE SOD SESQUIHYDRATE 20 MG TAB PO (09:52)
[2021-12-30] MEDS: APIXABAN 5 MG TABLET PO ×2 (09:52→17:07)
[2021-12-30] MEDS: allopurinoL 300 MG TABLET PO (09:53)
[2021-12-30] MEDS: TOLNAFTATE 1% POWDER 45 GM BTL 1 APPLIC TOPICAL (09:53)
[2021-12-30] MEDS: dilTIAZem HCL CD 180 MG CAP.ER.24H 360 MG PO (09:53)
[2021-12-30] MEDS: LACTULOSE 20 GM/30 ML UDC PO ×2 (09:53→17:07)
[2021-12-30 11:28] LABS: Glucose Point of Care 181 mg/dl (65-105)
--- NOTE | 2021-12-30 13:38 | PM.IMPN ---
Progress Note: A&P Assessment and Plan (1) Pyelonephritis: Code(s): N12 - Tubulo-interstitial nephritis, not specified as acute or chronic Status: Acute (2) Acute on chronic kidney failure: Code(s): N17.9 - Acute kidney failure, unspecified; N18.9 - Chronic kidney disease, unspecified Status: Acute (3) Dehydration: Code(s): E86.0 - Dehydration Status: Acute (4) Elevated troponin: Code(s): R77.8 - Other specified abnormalities of plasma proteins Status: Acute (5) Abnormal ultrasound: Code(s): R93.89 - Abnormal findings on diagnostic imaging of other specified body structures Status: Acute (6) Chronic anemia: Code(s): D64.9 - Anemia, unspecified Status: Acute (7) Paroxysmal atrial fibrillation: Code(s): I48.0 - Paroxysmal atrial fibrillation Status: Acute (8) Chronic anticoagulation: Code(s): 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 She reports mild dysuria and had pinkish colored urine over the weekend though that has since resolved. UA consistent with a UTI and CT of the abdomen/pelvis shows findings suspicious for ascending UTI on the right as well as gas in the urinary bladder which was most likely related to straight catheterization.? Proteinaceous bladder debris was also noted and urology consult may be prudent. She has been started on ceftriaxone and will continue with that, pending urine culture. Secondary to dehydration given poor oral intake for the last 1 week. No evidence of obstruction on CT. She will be judiciously hydrated with close monitoring of volume status and renal function. Avoid nephrotoxic agents. Troponin is mildly elevated though she is not having any chest pain whatsoever.? It is likely that this is elevated in the setting of her chronic kidney disease and other chronic illnesses. Retroperitoneal ultrasound done as an outpatient showed a small region in the proximal IVC which could represent a small thrombus. GFR is too low for CT of the chest today.? She is being hydrated overnight and hopefully her GFR well improve enough that we can get the imaging done for completeness sake. This? less likely as she has been on chronic anticoagulation for some time. Macrocytic anemia today with a hemoglobin of 10.3, hematocrit 32.3%, and an MCV of 112.9. Check iron studies, B12, and folate. Currently in a sinus rhythm. Continue anticoagulation for stroke prophylaxis. Initiate sliding scale insulin, Accu-Cheks, and hypoglycemic protocol. Check hemoglobin A1c. 12/28/21 WBC down tending w Rocephin afebrile blood and urine cx pending Cr improving mild axs trop bump 2/2 to sepsis LEE ANN on CKD PAF anemia, repeat trop ordered to ensure down trending hydralazine PRN Losartan to restart tomorrow as LEE ANN is anticipated to have resolved cont current care pending cultures and trop disp home w HHC vs SNF after recovery in a couple of days 12/30/2021 interval history: patient with complaint low back pain and dysuria urine culture is growing E coli one of the blood culture bottle is growing E coli patient and pansensitive was treated with ceftriaxone 1 g q.day escalated to 2 g q.day will need IV abx for total of 10 days, 04/29, will continue to monitor, will have a PT OT evaluate the patient and further recommendation to follow Subjective Date/time seen: 12/30/21 13:38 12/30/2021 interval history: patient with complaint low back pain and dysuria urine culture is growing E coli one of the blood culture bottle is growing E coli patient and pansensitive was treated with ceftriaxone 1 g q.day escalated to 2 g q.day will need IV abx for total of 10 days, 04/29, will co
[2021-12-30 14:00] VITALS: BP 130/58; PULSE 72; RESP 18; TEMP 36.6; O2SAT 97
[2021-12-30 17:05] LABS: Glucose Point of Care 126 mg/dl (65-105)
[2021-12-30 20:00] VITALS: O2SAT 98
[2021-12-30] MEDS: traMADol HCL (*CRX) 50 MG TABLET PO (20:54)
[2021-12-30 21:09] LABS: Glucose Point of Care 167 mg/dl (65-105)
[2021-12-30 22:00] VITALS: BP 154/61; PULSE 79; RESP 18; TEMP 36.2; O2SAT 98
[2021-12-31] VITALS (7 sets, daily range): BP systolic 143–164; BP diastolic 59–79; PULSE 70–81; RESP 18–23; TEMP 35.8–36.6; O2SAT 93–98
[2021-12-31 08:13] LABS: Glucose Point of Care 130 mg/dl (65-105)
[2021-12-31] MEDS: SODIUM CHLORIDE 0.9% IV 1,000 ML 70 ML IV CONT (08:53)
[2021-12-31] MEDS: MAGNESIUM OXIDE 400 MG TABLET PO ×2 (08:54→17:50)
[2021-12-31] MEDS: LOSARTAN POTASSIUM 100 MG TABLET PO (08:54)
[2021-12-31] MEDS: PANTOPRAZOLE SOD SESQUIHYDRATE 20 MG TAB PO (08:54)
[2021-12-31] MEDS: LACTULOSE 20 GM/30 ML UDC PO ×2 (08:54→17:50)
[2021-12-31] MEDS: calcitrioL 0.25 MCG CAPSULE PO (08:54)
[2021-12-31] MEDS: cefTRIAXone 2 GM in SODIUM CHLORIDE 0.9% IV 100 ML 200 ML IVPB (08:54)
[2021-12-31] MEDS: dilTIAZem HCL CD 180 MG CAP.ER.24H 360 MG PO (08:54)
[2021-12-31] MEDS: allopurinoL 300 MG TABLET PO (08:54)
[2021-12-31] MEDS: APIXABAN 5 MG TABLET PO ×2 (08:54→17:51)
[2021-12-31 11:38] LABS: Glucose Point of Care 136 mg/dl (65-105)
[2021-12-31] MEDS: BISACODYL 10 MG SUPPOSITORY RECTAL (13:40)
[2021-12-31] MEDS: polyethylene glycoL 3350 17 GM POWD.PACK PO (13:40)
[2021-12-31] MEDS: DOCUSATE SODIUM 100 MG CAPSULE PO (13:40)
--- NOTE | 2021-12-31 15:08 | PM.IMPN ---
Progress Note: A&P Assessment and Plan (1) Pyelonephritis: Code(s): N12 - Tubulo-interstitial nephritis, not specified as acute or chronic Status: Acute (2) Acute on chronic kidney failure: Code(s): N17.9 - Acute kidney failure, unspecified; N18.9 - Chronic kidney disease, unspecified Status: Acute (3) Dehydration: Code(s): E86.0 - Dehydration Status: Acute (4) Elevated troponin: Code(s): R77.8 - Other specified abnormalities of plasma proteins Status: Acute (5) Abnormal ultrasound: Code(s): R93.89 - Abnormal findings on diagnostic imaging of other specified body structures Status: Acute (6) Chronic anemia: Code(s): D64.9 - Anemia, unspecified Status: Acute (7) Paroxysmal atrial fibrillation: Code(s): I48.0 - Paroxysmal atrial fibrillation Status: Acute (8) Chronic anticoagulation: Code(s): 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 She reports mild dysuria and had pinkish colored urine over the weekend though that has since resolved. UA consistent with a UTI and CT of the abdomen/pelvis shows findings suspicious for ascending UTI on the right as well as gas in the urinary bladder which was most likely related to straight catheterization.? Proteinaceous bladder debris was also noted and urology consult may be prudent. She has been started on ceftriaxone and will continue with that, pending urine culture. Secondary to dehydration given poor oral intake for the last 1 week. No evidence of obstruction on CT. She will be judiciously hydrated with close monitoring of volume status and renal function. Avoid nephrotoxic agents. Troponin is mildly elevated though she is not having any chest pain whatsoever.? It is likely that this is elevated in the setting of her chronic kidney disease and other chronic illnesses. Retroperitoneal ultrasound done as an outpatient showed a small region in the proximal IVC which could represent a small thrombus. GFR is too low for CT of the chest today.? She is being hydrated overnight and hopefully her GFR well improve enough that we can get the imaging done for completeness sake. This? less likely as she has been on chronic anticoagulation for some time. Macrocytic anemia today with a hemoglobin of 10.3, hematocrit 32.3%, and an MCV of 112.9. Check iron studies, B12, and folate. Currently in a sinus rhythm. Continue anticoagulation for stroke prophylaxis. Initiate sliding scale insulin, Accu-Cheks, and hypoglycemic protocol. Check hemoglobin A1c. 12/28/21 WBC down tending w Rocephin afebrile blood and urine cx pending Cr improving mild axs trop bump 2/2 to sepsis LEE ANN on CKD PAF anemia, repeat trop ordered to ensure down trending hydralazine PRN Losartan to restart tomorrow as LEE ANN is anticipated to have resolved cont current care pending cultures and trop disp home w HHC vs SNF after recovery in a couple of days 12/31/2021 interval history: patient with complaint low back pain and dysuria urine culture is growing E coli one of the blood culture bottle is growing E coli patient and pansensitive was treated with ceftriaxone 1 g q.day escalated to 2 g q.day will need IV abx for total of 10 days, 05/27, D/W Pharmacy ID will CPM and switch patient to oral abx on 01/03, will continue to monitor, will have a PT OT evaluate the patient and further recommendation to follow Subjective Date/time seen: 12/31/21 15:08 12/31/2021 interval history: patient with complaint low back pain and dysuria urine culture is growing E coli one of the blood culture bottle is growing E coli patient and pansensitive was treated with ceftriaxone 1 g q.day escalated to
[2021-12-31 16:23] LABS: Glucose Point of Care 131 mg/dl (65-105)
[2021-12-31 20:45] LABS: Glucose Point of Care 165 mg/dl (65-105)
[2021-12-31] MEDS: traMADol HCL (*CRX) 50 MG TABLET PO (20:52)
[2022-01-01 02:15] VITALS: PULSE 74; RESP 20; O2SAT 96
[2022-01-01] MEDS: WATER FOR IRRIGATION, STERILE 1,000 ML BOTTLE 1000 ML (04:54)
[2022-01-01] MEDS: SODIUM CHLORIDE 0.9% IV 1,000 ML 70 ML IV CONT (04:54)
[2022-01-01 05:19] VITALS: BP 138/60; PULSE 78; RESP 17; TEMP 37; O2SAT 96
[2022-01-01 07:36] LABS: Glucose Point of Care 130 mg/dl (65-105)
[2022-01-01] MEDS: cefTRIAXone 2 GM in SODIUM CHLORIDE 0.9% IV 100 ML 200 ML IVPB (08:26)
[2022-01-01] MEDS: dilTIAZem HCL CD 180 MG CAP.ER.24H 360 MG PO (08:26)
[2022-01-01] MEDS: LOSARTAN POTASSIUM 100 MG TABLET PO (08:26)
[2022-01-01] MEDS: DOCUSATE SODIUM 100 MG CAPSULE PO ×2 (08:27→20:48)
[2022-01-01] MEDS: allopurinoL 300 MG TABLET PO (08:27)
[2022-01-01] MEDS: polyethylene glycoL 3350 17 GM POWD.PACK PO (08:27)
[2022-01-01] MEDS: MAGNESIUM OXIDE 400 MG TABLET PO ×2 (08:27→16:39)
[2022-01-01] MEDS: PANTOPRAZOLE SOD SESQUIHYDRATE 20 MG TAB PO (08:27)
[2022-01-01] MEDS: APIXABAN 5 MG TABLET PO ×2 (08:27→16:39)
[2022-01-01 09:35] LABS: Hematocrit 28.1 % (37.0-47.0); Hemoglobin 9.2 g/dL (12.0-15.0); Mean Corpuscular HGB Conc 32.7 g/dl (32-36); Mean Corpuscular Hemoglobin 35.2 pg (26-34); Mean Corpuscular Volume 107.7 fl (80-100); Mean Platelet Volume 11.5 fl (7.4-10.4); Platelet Count Result 368 k/mm3 (150-375); Red Blood Count 2.61 M/mm3 (4.2-5.4); Red Cell Distribution Width 16.2 % (11.5-14.5); White Blood Count 6.1 K/mm3 (4.5-10.0)
[2022-01-01 10:01] LABS: Anion Gap 8 mmol/L (8-16); Blood Urea Nitrogen 20 mg/dL (7-17); Calcium 8.9 mg/dL (8.4-10.2); Carbon Dioxide 25 mmol/L (22-30); Chloride 108 mmol/L (98-107); Estimated CRCL calculation 54 ml/min; Estimated Glomerular Filt Rate 53; Glucose 158 mg/dL (65-110); Potassium 3.4 mmol/L (3.4-5.0); Sodium 141 mmol/L (137-145)
[2022-01-01] MEDS: EUCERIN CREAM 120 GM JAR 1 APPLIC TOPICAL (10:18)
[2022-01-01 11:49] LABS: Glucose Point of Care 148 mg/dl (65-105)
[2022-01-01 13:40] VITALS: BP 148/58; PULSE 79; RESP 16; TEMP 36.4; O2SAT 98
--- NOTE | 2022-01-01 13:45 | PM.IMPN ---
Progress Note: A&P Assessment and Plan (1) Pyelonephritis: Code(s): N12 - Tubulo-interstitial nephritis, not specified as acute or chronic Status: Acute (2) Acute on chronic kidney failure: Code(s): N17.9 - Acute kidney failure, unspecified; N18.9 - Chronic kidney disease, unspecified Status: Acute (3) Dehydration: Code(s): E86.0 - Dehydration Status: Acute (4) Elevated troponin: Code(s): R77.8 - Other specified abnormalities of plasma proteins Status: Acute (5) Abnormal ultrasound: Code(s): R93.89 - Abnormal findings on diagnostic imaging of other specified body structures Status: Acute (6) Chronic anemia: Code(s): D64.9 - Anemia, unspecified Status: Acute (7) Paroxysmal atrial fibrillation: Code(s): I48.0 - Paroxysmal atrial fibrillation Status: Acute (8) Chronic anticoagulation: Code(s): Z79.01 - long term care phlebotomist (current) use of anticoagulants Status: Acute (9) Type 2 diabetes mellitus: Code(s): E11.9 - Type 2 diabetes mellitus without complications Status: Acute Plan 12/27/21 She has been having back pain for approximately 1 week with generalized malaise, nausea, chills, and low-grade fever. She reports mild dysuria and had pinkish colored urine over the weekend though that has since resolved. UA consistent with a UTI and CT of the abdomen/pelvis shows findings suspicious for ascending UTI on the right as well as gas in the urinary bladder which was most likely related to straight catheterization.? Proteinaceous bladder debris was also noted and urology consult may be prudent. She has been started on ceftriaxone and will continue with that, pending urine culture. Secondary to dehydration given poor oral intake for the last 1 week. No evidence of obstruction on CT. She will be judiciously hydrated with close monitoring of volume status and renal function. Avoid nephrotoxic agents. Troponin is mildly elevated though she is not having any chest pain whatsoever.? It is likely that this is elevated in the setting of her chronic kidney disease and other chronic illnesses. Retroperitoneal ultrasound done as an outpatient showed a small region in the proximal IVC which could represent a small thrombus. GFR is too low for CT of the chest today.? She is being hydrated overnight and hopefully her GFR well improve enough that we can get the imaging done for completeness sake. This? less likely as she has been on chronic anticoagulation for some time. Macrocytic anemia today with a hemoglobin of 10.3, hematocrit 32.3%, and an MCV of 112.9. Check iron studies, B12, and folate. Currently in a sinus rhythm. Continue anticoagulation for stroke prophylaxis. Initiate sliding scale insulin, Accu-Cheks, and hypoglycemic protocol. Check hemoglobin A1c. 12/28/21 WBC down tending w Rocephin afebrile blood and urine cx pending Cr improving mild axs trop bump 2/2 to sepsis LEE ANN on CKD PAF anemia, repeat trop ordered to ensure down trending hydralazine PRN Losartan to restart tomorrow as LEE ANN is anticipated to have resolved cont current care pending cultures and trop disp home w HHC vs SNF after recovery in a couple of days 01/01/2022 interval history: patient with complaint low back pain and dysuria urine culture is growing E coli one of the blood culture bottle is growing E coli culture is pansensitive was treated with ceftriaxone 1 g q.day escalated to 2 g q.day will need IV abx for total of 10 days, 06/27, D/W Pharmacy ID will CPM and switch patient to oral abx on 01/03, will continue to monitor, will have a PT OT evaluate the patient and further recommendation to follow Subjective Date/time seen: 01/01/22 13:45 01/01/2022 interval history: patient with complaint low back pain and dysuria urine culture is growing E coli one of the blood culture bottle is growing E coli culture is pansensitive was treated with ceftriaxone 1 g q.day escalated to 2 g
[2022-01-01 16:14] LABS: Glucose Point of Care 149 mg/dl (65-105)
[2022-01-01 20:40] LABS: Glucose Point of Care 157 mg/dl (65-105)
[2022-01-01] MEDS: traMADol HCL (*CRX) 50 MG TABLET PO (20:48)
[2022-01-01 21:25] VITALS: BP 169/69; PULSE 79; RESP 28; TEMP 36.4; O2SAT 95
[2022-01-01 22:15] VITALS: PULSE 69; RESP 27; O2SAT 97
[2022-01-02] MEDS: SODIUM CHLORIDE 0.9% IV 1,000 ML 70 ML IV CONT ×2 (04:06→16:46)
[2022-01-02 04:50] VITALS: PULSE 72; RESP 24; O2SAT 98
[2022-01-02 05:20] VITALS: BP 121/42; PULSE 65; RESP 24; TEMP 36.4; O2SAT 95
[2022-01-02 07:36] LABS: Glucose Point of Care 126 mg/dl (65-105)
[2022-01-02 07:49] LABS: Hematocrit 25.7 % (37.0-47.0); Hemoglobin 8.3 g/dL (12.0-15.0); Mean Corpuscular HGB Conc 32.3 g/dl (32-36); Mean Corpuscular Hemoglobin 34.9 pg (26-34); Mean Platelet Volume 11.3 fl (7.4-10.4); Platelet Count Result 346 k/mm3 (150-375); Red Blood Count 2.38 M/mm3 (4.2-5.4); Red Cell Distribution Width 16.4 % (11.5-14.5); White Blood Count 6.7 K/mm3 (4.5-10.0)
[2022-01-02 08:00] LABS: Anion Gap 5 mmol/L (8-16); Blood Urea Nitrogen 23 mg/dL (7-17); Calcium 8.6 mg/dL (8.4-10.2); Carbon Dioxide 26 mmol/L (22-30); Chloride 111 mmol/L (98-107); Estimated CRCL calculation 60 ml/min; Estimated Glomerular Filt Rate 60; Glucose 125 mg/dL (65-110); Potassium 3.6 mmol/L (3.4-5.0); Sodium 142 mmol/L (137-145)
[2022-01-02] MEDS: APIXABAN 5 MG TABLET PO ×2 (08:25→16:46)
[2022-01-02] MEDS: DOCUSATE SODIUM 100 MG CAPSULE PO ×2 (08:25→20:33)
[2022-01-02] MEDS: cefTRIAXone 2 GM in SODIUM CHLORIDE 0.9% IV 100 ML 200 ML IVPB (08:25)
[2022-01-02] MEDS: MAGNESIUM OXIDE 400 MG TABLET PO ×2 (08:25→16:46)
[2022-01-02] MEDS: dilTIAZem HCL CD 180 MG CAP.ER.24H 360 MG PO (08:25)
[2022-01-02] MEDS: polyethylene glycoL 3350 17 GM POWD.PACK PO (08:25)
[2022-01-02] MEDS: PANTOPRAZOLE SOD SESQUIHYDRATE 20 MG TAB PO (08:26)
[2022-01-02] MEDS: allopurinoL 300 MG TABLET PO (08:26)
[2022-01-02] MEDS: LOSARTAN POTASSIUM 100 MG TABLET PO (08:26)
[2022-01-02] MEDS: EUCERIN CREAM 120 GM JAR 1 APPLIC TOPICAL (08:26)
[2022-01-02] MEDS: TOLNAFTATE 1% POWDER 45 GM BTL 1 APPLIC TOPICAL (08:29)
[2022-01-02 11:22] LABS: Glucose Point of Care 144 mg/dl (65-105)
[2022-01-02 13:22] VITALS: BP 141/54; PULSE 74; RESP 20; TEMP 36.4; O2SAT 95
--- NOTE | 2022-01-02 14:01 | PM.IMPN ---
Progress Note: A&P Assessment and Plan (1) Pyelonephritis: Code(s): N12 - Tubulo-interstitial nephritis, not specified as acute or chronic Status: Acute (2) Acute on chronic kidney failure: Code(s): N17.9 - Acute kidney failure, unspecified; N18.9 - Chronic kidney disease, unspecified Status: Acute (3) Dehydration: Code(s): E86.0 - Dehydration Status: Acute (4) Elevated troponin: Code(s): R77.8 - Other specified abnormalities of plasma proteins Status: Acute (5) Abnormal ultrasound: Code(s): R93.89 - Abnormal findings on diagnostic imaging of other specified body structures Status: Acute (6) Chronic anemia: Code(s): D64.9 - Anemia, unspecified Status: Acute (7) Paroxysmal atrial fibrillation: Code(s): I48.0 - Paroxysmal atrial fibrillation Status: Acute (8) Chronic anticoagulation: Code(s): Z79.01 - intermodal customer service (current) use of anticoagulants Status: Acute (9) Type 2 diabetes mellitus: Code(s): E11.9 - Type 2 diabetes mellitus without complications Status: Acute Plan 12/27/21 She has been having back pain for approximately 1 week with generalized malaise, nausea, chills, and low-grade fever. She reports mild dysuria and had pinkish colored urine over the weekend though that has since resolved. UA consistent with a UTI and CT of the abdomen/pelvis shows findings suspicious for ascending UTI on the right as well as gas in the urinary bladder which was most likely related to straight catheterization.? Proteinaceous bladder debris was also noted and urology consult may be prudent. She has been started on ceftriaxone and will continue with that, pending urine culture. Secondary to dehydration given poor oral intake for the last 1 week. No evidence of obstruction on CT. She will be judiciously hydrated with close monitoring of volume status and renal function. Avoid nephrotoxic agents. Troponin is mildly elevated though she is not having any chest pain whatsoever.? It is likely that this is elevated in the setting of her chronic kidney disease and other chronic illnesses. Retroperitoneal ultrasound done as an outpatient showed a small region in the proximal IVC which could represent a small thrombus. GFR is too low for CT of the chest today.? She is being hydrated overnight and hopefully her GFR well improve enough that we can get the imaging done for completeness sake. This? less likely as she has been on chronic anticoagulation for some time. Macrocytic anemia today with a hemoglobin of 10.3, hematocrit 32.3%, and an MCV of 112.9. Check iron studies, B12, and folate. Currently in a sinus rhythm. Continue anticoagulation for stroke prophylaxis. Initiate sliding scale insulin, Accu-Cheks, and hypoglycemic protocol. Check hemoglobin A1c. 12/28/21 WBC down tending w Rocephin afebrile blood and urine cx pending Cr improving mild axs trop bump 2/2 to sepsis LEE ANN on CKD PAF anemia, repeat trop ordered to ensure down trending hydralazine PRN Losartan to restart tomorrow as LEE ANN is anticipated to have resolved cont current care pending cultures and trop disp home w HHC vs SNF after recovery in a couple of days 01/02/2022 interval history: patient with complaint low back pain and dysuria urine culture is growing E coli one of the blood culture bottle is growing E coli culture is pansensitive was treated with ceftriaxone 1 g q.day escalated to 2 g q.day will need IV abx for total of 10 days, 07/27, D/W Pharmacy ID will CPM and switch patient to oral abx on 01/03, will continue to monitor, will have a PT OT evaluate the patient and further recommendation to follow, patient has no new complaints, will discharge patient tomorrow. Subjective Date/time seen: 01/02/22 14:01 01/02/2022 interval history: patient with complaint low back pain and dysuria urine culture is growing E coli one of the blood culture bottle is growing E coli culture is p
[2022-01-02 16:03] LABS: Glucose Point of Care 145 mg/dl (65-105)
[2022-01-02 21:14] LABS: Glucose Point of Care 174 mg/dl (65-105)
[2022-01-02] MEDS: traMADol HCL (*CRX) 50 MG TABLET PO (21:26)
[2022-01-02 21:43] VITALS: BP 154/49; PULSE 83; RESP 24; TEMP 36.8; O2SAT 95
[2022-01-03 01:43] VITALS: PULSE 75; RESP 23; O2SAT 98
[2022-01-03 06:00] VITALS: BP 149/55; PULSE 76; RESP 20; TEMP 36.6; O2SAT 95
[2022-01-03 06:41] LABS: Hematocrit 25.8 % (37.0-47.0); Hemoglobin 8.3 g/dL (12.0-15.0); Mean Corpuscular HGB Conc 32.2 g/dl (32-36); Mean Corpuscular Hemoglobin 34.4 pg (26-34); Mean Corpuscular Volume 107.1 fl (80-100); Mean Platelet Volume 11.1 fl (7.4-10.4); Platelet Count Result 362 k/mm3 (150-375); Red Blood Count 2.41 M/mm3 (4.2-5.4); Red Cell Distribution Width 16.3 % (11.5-14.5); White Blood Count 7.1 K/mm3 (4.5-10.0)
[2022-01-03 07:03] LABS: Anion Gap 9 mmol/L (8-16); Blood Urea Nitrogen 21 mg/dL (7-17); Calcium 8.7 mg/dL (8.4-10.2); Carbon Dioxide 25 mmol/L (22-30); Chloride 109 mmol/L (98-107); Estimated CRCL calculation 60 ml/min; Estimated Glomerular Filt Rate 60; Glucose 117 mg/dL (65-110); Potassium 3.5 mmol/L (3.4-5.0); Sodium 143 mmol/L (137-145)
[2022-01-03 07:37] LABS: Glucose Point of Care 121 mg/dl (65-105)
[2022-01-03] MEDS: DOCUSATE SODIUM 100 MG CAPSULE PO (08:33)
[2022-01-03] MEDS: allopurinoL 300 MG TABLET PO (08:33)
[2022-01-03] MEDS: LOSARTAN POTASSIUM 100 MG TABLET PO (08:33)
[2022-01-03] MEDS: cefTRIAXone 2 GM in SODIUM CHLORIDE 0.9% IV 100 ML 200 ML IVPB (08:33)
[2022-01-03] MEDS: dilTIAZem HCL CD 180 MG CAP.ER.24H 360 MG PO (08:34)
[2022-01-03] MEDS: EUCERIN CREAM 120 GM JAR 1 APPLIC TOPICAL (08:34)
[2022-01-03] MEDS: PANTOPRAZOLE SOD SESQUIHYDRATE 20 MG TAB PO (08:34)
[2022-01-03] MEDS: MAGNESIUM OXIDE 400 MG TABLET PO ×2 (08:34→16:11)
[2022-01-03] MEDS: APIXABAN 5 MG TABLET PO ×2 (08:34→16:11)
[2022-01-03] MEDS: calcitrioL 0.25 MCG CAPSULE PO (08:34)
[2022-01-03] MEDS: POTASSIUM CHLORIDE 20 MEQ TABLET 40 MEQ PO (10:16)
--- NOTE | 2022-01-03 11:44 | PCNFU ---
Nutrition Follow-Up Complete: Inadequate Oral Intake as related to pain as evidenced by poor po intake reported and weight loss of 15% in the past 6 months. Goal: Adequate intake of at least 75% of meals/supplements - Goal being met Pt current nutrition is Heart healthy diet, Glucerna BID. Nutrition recommendation: Continue current diet order and supplements Last recorded weight is 119.7 kg. Bowel Motility: +1 BM 01/02/22 Labs Reviewed: Hgb 8.3, Hct 25.8, BUN 21, Glu 117-121 Meds Noted: Eliquis, diltiazem, hydrazaline, Novolog, lantus, protonix Skin: ANL Additional Notes: Intakes averaging 86%. Agree with current diet and supplements. RD will monitor every 5 days.
[2022-01-03 11:45] LABS: Glucose Point of Care 131 mg/dl (65-105)
--- NOTE | 2022-01-03 12:35 | PM.DS ---
DS: Admitting Diagnosis Discharge Date Admitting Diagnosis Abnormal ultrasound. DS: Discharge Diagnosis Discharge Diagnosis (1) Pyelonephritis: Code(s): N12 - Tubulo-interstitial nephritis, not specified as acute or chronic Status: Acute (2) Acute on chronic kidney failure: Code(s): N17.9 - Acute kidney failure, unspecified; N18.9 - Chronic kidney disease, unspecified Status: Acute (3) Dehydration: Code(s): E86.0 - Dehydration Status: Acute (4) Elevated troponin: Code(s): R77.8 - Other specified abnormalities of plasma proteins Status: Acute (5) Abnormal ultrasound: Code(s): R93.89 - Abnormal findings on diagnostic imaging of other specified body structures Status: Acute (6) Chronic anemia: Code(s): D64.9 - Anemia, unspecified Status: Acute (7) Paroxysmal atrial fibrillation: Code(s): I48.0 - Paroxysmal atrial fibrillation Status: Acute (8) Chronic anticoagulation: Code(s): Z79.01 - watermaster (current) use of anticoagulants Status: Acute (9) Type 2 diabetes mellitus: Code(s): E11.9 - Type 2 diabetes mellitus without complications Status: Acute Plan 12/27/21 She has been having back pain for approximately 1 week with generalized malaise, nausea, chills, and low-grade fever. She reports mild dysuria and had pinkish colored urine over the weekend though that has since resolved. UA consistent with a UTI and CT of the abdomen/pelvis shows findings suspicious for ascending UTI on the right as well as gas in the urinary bladder which was most likely related to straight catheterization.? Proteinaceous bladder debris was also noted and urology consult may be prudent. She has been started on ceftriaxone and will continue with that, pending urine culture. Secondary to dehydration given poor oral intake for the last 1 week. No evidence of obstruction on CT. She will be judiciously hydrated with close monitoring of volume status and renal function. Avoid nephrotoxic agents. Troponin is mildly elevated though she is not having any chest pain whatsoever.? It is likely that this is elevated in the setting of her chronic kidney disease and other chronic illnesses. Retroperitoneal ultrasound done as an outpatient showed a small region in the proximal IVC which could represent a small thrombus. GFR is too low for CT of the chest today.? She is being hydrated overnight and hopefully her GFR well improve enough that we can get the imaging done for completeness sake. This? less likely as she has been on chronic anticoagulation for some time. Macrocytic anemia today with a hemoglobin of 10.3, hematocrit 32.3%, and an MCV of 112.9. Check iron studies, B12, and folate. Currently in a sinus rhythm. Continue anticoagulation for stroke prophylaxis. Initiate sliding scale insulin, Accu-Cheks, and hypoglycemic protocol. Check hemoglobin A1c. 12/28/21 WBC down tending w Rocephin afebrile blood and urine cx pending Cr improving mild axs trop bump 2/2 to sepsis LEE ANN on CKD PAF anemia, repeat trop ordered to ensure down trending hydralazine PRN Losartan to restart tomorrow as LEE ANN is anticipated to have resolved cont current care pending cultures and trop disp home w HHC vs SNF after recovery in a couple of days 01/02/2022 interval history: patient with complaint low back pain and dysuria urine culture is growing E coli one of the blood culture bottle is growing E coli culture is pansensitive was treated with ceftriaxone 1 g q.day escalated to 2 g q.day will need IV abx for total of 10 days, 07/27, D/W Pharmacy ID will CPM and switch patient to oral abx on 01/03, will continue to monitor, will have a PT OT evaluate the patient and further recommendation to follow, patient has no new complaints, will discharge patient tomorrow. DS: Summary Hospital Course Reason for hospitalization: Abnormal ultrasound. Narrative: This is a very pleasan
[2022-01-03 13:15] LABS: EDCOVIDSCREEN Negative (Negative)
--- NOTE | 2022-01-03 13:51 | PC.NURSE ---
3 calls made to [facility]. No one answers the phone. Finally able to get someone that will send a message to that nurse . Awaiting call back.
[2022-01-03 15:15] VITALS: BP 162/77; PULSE 82; RESP 24; TEMP 36.9; O2SAT 95
[2022-01-03] MEDS: hydrALAZINE HCL 20 MG/ML VIAL 10 MG IV PUSH (16:11)
--- NOTE | 2022-01-03 16:39 | PC.NURSE ---
Attempts made by myself and charge nurse to speak with a nurse to give report. coordinator integrated marketing made call to medical referral coordinator. We have been told many times that someone would call us back or sent to phone lines where no one picks up. Will wait a few more minutes and call again.
[2022-01-03 17:22] LABS: Glucose Point of Care 133 mg/dl (65-105)
[2022-01-03] MEDS: ACETAMINOPHEN 325 MG TABLET 650 MG PO (21:34)
[2022-01-03 21:53] VITALS: BP 156/57; PULSE 84; RESP 16; TEMP 37.1; O2SAT 96
[2022-01-03 23:34] LABS: Glucose Point of Care 126 mg/dl (65-105)
== END 2022-01-03 23:13 | DRG 690 ==
LOC: ANHED 17:28 → ANH3MEDSUR 18:28
PROVIDERS: Hospitalist; Physician Assistant; Admitting Provider Internal Medicine; Emergency Provider Emergency Medicine; PCP Internal Medicine Infectious Disease; Visit Provider Family Medicine
DX: N39.0 Urinary tract infection, site not specified (principal); N17.9 Acute kidney failure, unspecified; I12.9 Hypertensive chronic kidney disease with stage 1 through stage 4 chronic kidney disease, or unspecified chronic kidney disease; I25.10 Atherosclerotic heart disease of native coronary artery without angina pectoris; I48.0 Paroxysmal atrial fibrillation; B96.20 Unspecified Escherichia coli [E. coli] as the cause of diseases classified elsewhere; N18.30 Chronic kidney disease, stage 3 unspecified; D63.1 Anemia in chronic kidney disease; E86.0 Dehydration; E66.01 Morbid (severe) obesity due to excess calories; E53.8 Deficiency of other specified B group vitamins; E11.22 Type 2 diabetes mellitus with diabetic chronic kidney disease; F41.9 Anxiety disorder, unspecified; G47.33 Obstructive sleep apnea (adult) (pediatric); I87.2 Venous insufficiency (chronic) (peripheral); K21.9 Gastro-esophageal reflux disease without esophagitis; M10.9 Gout, unspecified; M48.00 Spinal stenosis, site unspecified; M19.90 Unspecified osteoarthritis, unspecified site; N32.81 Overactive bladder; R77.8 Other specified abnormalities of plasma proteins; R93.89 Abnormal findings on diagnostic imaging of other specified body structures; Z20.822 Contact with and (suspected) exposure to COVID-19; Z68.39 Body mass index [BMI] 39.0-39.9, adult; Z79.01 Long term (current) use of anticoagulants; Z79.4 Long term (current) use of insulin; Z95.5 Presence of coronary angioplasty implant and graft; Z90.710 Acquired absence of both cervix and uterus; Z95.0 Presence of cardiac pacemaker
CPT/HCPCS: 36415; 51701; 71046; 74018; 74176; 80048; 80053; 81001; 82607; 82728; 82746; 82948; 83036; 83540; 83550; 83605; 83690; 83735; 84443; 84484; 85025; 85027; 85610; 85730; 87040; 87077; 87086; 87088; 87186; 87426; 93005; 93970; 94660; 96361; 96365; 96366; 97110; 97116; 97161; 97165; 97530; 97535; 99285; A9270; C9803; G0378; J0360; J0696; J7030

== ENCOUNTER 2022-06-13 14:11 | Observation (INO) | payer MEDICARE, MEDICAID, SELFPAY ==
[2022-06-13] VITALS (11 sets, daily range): BP systolic 115–147; BP diastolic 49–91; PULSE 66–87; RESP 14–21; TEMP 36.4–36.8; O2SAT 96–99; BMI 34.5
--- NOTE | ~2022-06-13 | US_ITS ---
EXAMINATION: US renal BI DATE: 06/14/2022 10:53 INDICATION: Acute kidney injury. TECHNIQUE: Multiple ultrasound grayscale images of the kidneys were obtained. COMPARISON: CT 12/27/2021 FINDINGS: The right kidney measures 11.6 x 5.1 x 4.9 cm. There is cortical thinning of right kidney. The right kidney demonstrates normal parenchymal echogenicity. The left kidney is not visualized. There is no h ydronephrosis. The bladder is distended. IMPRESSION: 1. Cortical thinning of right kidney. No hydronephrosis. 2. Left kidney not visualized due to obesity and overlying bowel. Reviewed, dictated and finalized at location A.
--- NOTE | ~2022-06-13 | CT_ITS ---
EXAMINATION: CT chest abdomen pelvis wo con DATE: 06/15/2022 13:17 INDICATION: Weight loss. Anemia. Nausea and vomiting. TECHNIQUE: Computed tomography (CT) of the chest, abdomen, and pelvis was performed without intraveno us contrast. Automated exposure control and iterative reconstruction technique were employed. The dos e-length product was 1846.52 mGy-cm. COMPARISON: CT abdomen and pelvis 12/27/2021 FINDINGS: CHEST CT: There is mild atelectasis in the left. Calcified pulmonary nodules and calcified hilar and mediastina l lymph nodes are consistent with old granulomatous disease. There is chronic mild elevation of left hemidiaphragm. No pleural effusion. There is a left chest pacer with lead in right ventricle. The hea rt size is normal. No pericardial effusion. There is calcified atherosclerosis of the aorta. There is severe cervical and thoracic spondylosis. There are bridging endplate osteophytes at multiple levels in the spine, consistent with diffuse idiopathic skeletal hyperostosis (DISH). There is mild chronic height loss of multiple vertebral bodies. ABDOMEN/PELVIS CT: The liver is normal. There are changes of cholecystectomy. Chronic masses adjacent to right hepatic l obe are likely dropped gallstones. Calcifications in the spleen are consistent with old granulomatous disease. The pancreas and adrenal glands are normal. There is cortical thinning of the kidneys. Ther e is no urolithiasis. The bladder is distended. There is dependent material in the bladder measuring soft tissue attenuation. There is diverticulosis of the colon without evidence of diverticulitis. The re are no dilated loops of bowel. The appendix is not visualized. There are no pathologically enlarge d lymph nodes. There is no free intraperitoneal fluid. There is severe lumbar spondylosis. There are chronic compression fractures of L1 and L3. IMPRESSION: 1. Dependent material in the bladder measuring soft tissue attenuation that may be hematoma or other sediment or less likely malignancy. Reviewed, dictated and finalized at location A.
[2022-06-13 15:16] LABS: Basophils Absolute Auto 0.1 K/mm3 (0.0-0.1); Basophils Percent Auto 0.7 % (0.2-1.2); Eosinophils Absolute Auto 0.4 K/mm3 (0-0.3); Eosinophils Percent Auto 5.2 % (0-4.4); Hematocrit 22.9 % (37.0-47.0); Hemoglobin 7.4 g/dL (12.0-15.0); Immature Granulocyte Absolute 0.03 K/mm3 (0.00-0.031); Immature Granulocyte Percent A 0.4 % (0-0.5); Immature Platelet Fraction Pct 3.4 % (0.9-11.2); Lymphocytes Percent Auto 26.5 % (18.3-44.2); Mean Corpuscular HGB Conc 32.3 g/dl (32-36); Mean Corpuscular Hemoglobin 37.4 pg (26-34); Mean Corpuscular Volume 115.7 fl (80-100); Mean Platelet Volume 11.7 fl (7.4-10.4); Monocytes Absolute Auto 0.5 K/mm3 (0.1-0.6); Monocytes Percent Auto 7.4 % (2.6-8.5); Neutrophils Absolute Auto 4.3 K/mm3 (1.3-6.7); Neutrophils Percent Auto 59.8 % (45.5-73.1); Platelet Count Result 366 k/mm3 (150-375); Red Blood Count 1.98 M/mm3 (4.2-5.4); Red Cell Distribution Width 20.5 % (11.5-14.5); White Blood Count 7.2 K/mm3 (4.5-10.0)
--- NOTE | 2022-06-13 15:32 | ED.GENADULT ---
HPI - General Adult General Chief complaint: Recheck/Abnormal Lab/Rx Stated complaint: abnormal labs Time Seen by Provider: 06/13/22 14:36 Source: RN notes reviewed History of Present Illness HPI narrative: Patient presents emergency department from [facility] via EMS for anemia. The patient has a history of chronic anemia and had been noted to have a decreased hemoglobin 6.4 today and was sent to the emergency department for further evaluation. The patient states that she is on blood thinners but denies have any blood in her stool. States that she does not note any black stools as well she denies any fevers or chills she denies any abdominal pain nausea or vomiting states she has been feeling generally weak Related Data Home Medications Medication Instructions Recorded Confirmed allopurinol 300 mg tablet 300 mg PO DAILY 12/27/21 12/27/21 apixaban 5 mg tablet (Eliquis) 5 mg PO BID 12/27/21 12/28/21 calcitriol 0.25 mcg capsule 0.25 mcg PO EVERY OTHER DAY 12/27/21 12/28/21 diltiazem HCl 360 mg 360 mg PO DAILY 12/27/21 12/28/21 capsule,extended release 24 hr dofetilide 250 mcg capsule 250 mcg PO DAILY 12/27/21 12/27/21 furosemide 80 mg tablet 80 mg PO DAILY 12/27/21 12/27/21 insulin lispro 100 unit/mL See Protocol subcut ACHS 12/27/21 12/27/21 subcutaneous solution lactulose 10 gram/15 mL oral 30 ml PO BID 12/27/21 12/27/21 solution (Enulose) magnesium oxide 400 mg (241.3 mg 400 mg PO BID 12/27/21 12/27/21 magnesium) tablet nystatin 100,000 unit/gram topical 100,000 unit topical PRN 12/27/21 12/27/21 powder (Nyamyc) pantoprazole 20 mg tablet,delayed 20 mg PO DAILY 12/27/21 12/27/21 release potassium chloride 20 mEq 20 meq PO DAILY 12/27/21 12/28/21 tablet,extended release potassium chloride 20 mEq 20 meq PO DAILY 12/27/21 12/27/21 tablet,extended release(part/cryst) Allergies Allergy/AdvReac Type Severity Reaction Status Date / Time clonidine [From [facility]] Allergy Swelling Verified 01/18/22 19:14 of Lip/Tongue/Throat Review of Systems Review of Systems: Gen.: Denies fevers or chills ENT: Denies congestion Respiratory: Denies shortness of breath or cough CV: Denies chest pain or palpitations GI: Denies abdominal pain nausea, emesis or diarrhea Musculoskeletal: Denies back pain or muscle pain Neuro: Reports weakness Skin: Denies rash Except as documented, all other systems reviewed and negative [facility] Past Medical History Medical History Anxiety Arthritis Chronic anemia Chronic anticoagulation Chronic kidney disease, stage 3 Coronary artery disease Folate deficiency Gastroesophageal reflux disease Gout Hypertension Obstructive sleep apnea Overactive bladder Paroxysmal atrial fibrillation Spinal stenosis Type 2 diabetes mellitus Venous insufficiency Vitamin B12 deficiency Surgical History Surgical History (Updated 12/27/21 @ 23:30 by Kendal Norris PA-C) History of coronary artery stent placement History of hysterectomy History of permanent cardiac pacemaker placement History of tonsillectomy Family History Family History Mother Diabetes mellitus AA (aortic aneurysm) Sibling AA (aortic aneurysm) Breast cancer Social History Social History Social History: Healthcare power of environmental attorney: Huong Whittington, son. Code status: Full code. Smoking status: Never smoker Alcohol intake: never Substance use: never Additional living arrangements comments: . She has 6 children. Resident at [facility]. Spiritual care concerns: No Exam Narrative: APPEARANCE: No acute distress, nontoxic, resting in bed EYES: EOMI HEENT: Normocephalic, atraumatic, OMM RESPIRATORY: No respiratory distress Clear to auscultation bilaterally with no rhonchi wheezing or rales. CARDIOVASCULAR: Regular r
[2022-06-13 15:35] LABS: Platelet Estimate Adequate (Adequate)
[2022-06-13 15:36] LABS: Anisocytosis 1+ (NORMAL); Macrocytosis 1+ (NORMAL); Microcytosis 1+ (NORMAL); Ovalocytes 1+ (NORMAL); Stomatocytes 1+ (NORMAL); Target Cells 1+ (NORMAL)
[2022-06-13 16:11] LABS: Schistocytes None Seen (NORMAL)
[2022-06-13 16:32] LABS: Alanine Aminotransferase 16 U/L (6-35); Albumin Level 3.7 g/dL (3.5-5.1); Alkaline Phosphatase 85 U/L (38-126); Anion Gap 10 mmol/L (8-16); Aspartate Amino Transferase 19 U/L (14-36); Bilirubin,Total 0.5 mg/dL (0.2-1.3); Blood Urea Nitrogen 93 mg/dL (7-17); Calcium 11.9 mg/dL (8.4-10.2); Carbon Dioxide 22 mmol/L (22-30); Chloride 103 mmol/L (98-107); Estimated CRCL calculation 23 ml/min; Estimated Glomerular Filt Rate 20; Glucose 169 mg/dL (65-110); Potassium 4.6 mmol/L (3.4-5.0); Sodium 135 mmol/L (137-145)
[2022-06-13 16:42] LABS: INR 1.4; Partial Thromboplastin Time 28.7 SECONDS (22.3-36.8); Prothrombin Time 16.9 Seconds (11.1-14.7)
[2022-06-13 17:20] LABS: Appearance Urine Clear (Clear); Bilirubin Urine Negative (Negative); Blood Urine Negative (Negative); Color Urine Yellow (Yellow); Glucose Urine UA Negative (Negative); Ketones Urine Negative (Negative); Leukocyte Esterase Ur Negative LEU/UL (Negative); Nitrate Urine Negative (Negative); Protein Urine Negative (Negative); Specific Grav Ur 1.013 (1.001-1.035); Urobilinogen Urine 0.2 mg/dL (<2.0); pH Urine 6.5 (5.0-9.0)
[2022-06-13 17:22] LABS: Add Urine Microscopic? NO
--- NOTE | 2022-06-13 18:30 | PM.IMHP ---
H&P: HPI History of Present Illness Date/Time: 06/13/22 18:30 Chief Complaint: Low hemoglobin. Narrative: This is a very pleasant 81-year-old female with multiple medical problems including coronary artery disease, paroxysmal atrial fibrillation on chronic anticoagulation, hypertension, obstructive sleep apnea, type 2 diabetes mellitus, chronic kidney disease, and other comorbidities who presented to the emergency department via EMS from [facility] for evaluation after she was found to have a low hemoglobin level. Patient provides the following history. She had lab work done on June 09 for evaluation of a 70 lb weight loss in the last 10 months and ongoing nausea, bloating, early satiety, lightheadedness, dizziness, and weakness. Hemoglobin was reportedly 7.0 at that time and that was repeated today and she was sent in as her hemoglobin apparently dropped down to 6.3. She is on Eliquis and has not noticed any dark stools recently but has noticed tar-like stool on occasion but not recently (stool was Hemoccult negative on rectal exam in the ED). She has a history of GERD and had upper and lower endoscopies done per Dr. Mcneill a couple of years ago which showed reflux but no peptic ulcers to her knowledge. Pertinent labs include a WBC count of 7.2, RBC count 1.98, hemoglobin 7.4, MCV 115.7, platelets 366, BUN 93, creatinine 2.30, and calcium 11.9. She was transfused a unit of packed red blood cells in the ER and she is being admitted in this setting for further workup of acute kidney injury. Review of Systems Review of Systems: Twelve systems were reviewed. No fever, chills, or sweats. She has been getting lightheaded and dizzy as above. Over the past year so she has developed weakness in her left arm and leg to the point where she is unable to stand and she is assisted up from bed with a gait belt and transition to a wheelchair thereafter. Sometime she has difficulties even holding herself up in the wheelchair due to weakness. She also endorses difficulties swallowing and she is worried that she may have ALS. She denies fatigue with chewing, shortness of breath, choking episodes, concerns for aspiration, visual changes, lid leg, facial droop, and speech difficulties. She has not had chest or pleuritic pain. She has occasional fluttering but nothing significant. Except as documented, all other systems were reviewed and are negative. [facility] Past Medical History Medical History Anxiety Arthritis Chronic anemia Chronic anticoagulation Chronic kidney disease, stage 3 Coronary artery disease Folate deficiency Gastroesophageal reflux disease Gout Hypertension Obstructive sleep apnea Overactive bladder Paroxysmal atrial fibrillation Spinal stenosis Type 2 diabetes mellitus Venous insufficiency Vitamin B12 deficiency Surgical History Surgical History History of coronary artery stent placement History of hysterectomy History of permanent cardiac pacemaker placement History of tonsillectomy Family History Family History Mother Diabetes mellitus AA (aortic aneurysm) Sibling AA (aortic aneurysm) Breast cancer Social History Social History Social History: Healthcare power of javascript ui developer: Huong Whittington, son. Code status: Full code. Smoking status: Former smoker Smoking end date: 05/18/73 Alcohol intake: never Substance use: never Lack of Transportation: No Lack of Food: Never True Current Housing: I Have Housing Concerned About Future Housing: No Difficulty Paying Gas/Electric Bills: No Difficulty Paying for Meds: No Currently Unemployed: No Education: High School Diploma/GED Difficulty w/ Childcare or Family Care: No Additional living arrangements comments: . S
[2022-06-13] MEDS: SODIUM CHLORIDE 0.9% IV 1,000 ML 999 ML IV CONT (18:47)
[2022-06-13 19:50] LABS: Iron 109 ug/dL (37-170)
[2022-06-13 19:55] LABS: Immature Reticulocyte Fraction 22.6 % (3.0-15.9); Reticulocyte Hemoglobin Conten 38.1 pg (28.2-35.7); Reticulocyte Percent 1.72 % (0.7-4.3); Reticulocytes Absolute 0.03 B/L (32.2-175.7)
[2022-06-13 19:59] LABS: Percent Iron Saturation 36 % (20-50)
--- NOTE | 2022-06-13 19:59 | ADMGEN ---
This patient, Jud Erwin, was admitted to [facility] Surg Room 303-01 at 1900. Patient/family oriented to hospital policies and general routines including ID bracelet, bed and alarms, visiting hours, pain management, procedures, bathroom and other care routines, personal items, smoking policy, room service/diet, and visiting hours. Information on how to activate the Rapid Response Team has been discussed. Patient/Family are encouraged to report perceived risks to care and to ask questions if they do not understand what they are told or what they should do.
[2022-06-13 20:26] LABS: Parathyroid Intact 22.4 pg/mL (7.5-53.5)
[2022-06-13 20:41] LABS: Magnesium 2.7 mg/dL (1.6-2.3); Phosphorus 4.2 mg/dL (2.5-4.5)
[2022-06-13 20:48] LABS: Transferrin 200 mg/dL (206-381)
[2022-06-13 21:53] LABS: Hematocrit 26.1 % (37.0-47.0); Hemoglobin 8.5 g/dL (12.0-15.0)
[2022-06-14 01:37] LABS: Hemoglobin A1C 6.9 % (<5.7)
[2022-06-14] MEDS: SODIUM CHLORIDE 0.9% IV 1,000 ML 100 ML IV CONT (01:39)
[2022-06-14] MEDS: BISACODYL 5 MG TABLET EC PO (01:39)
[2022-06-14 05:21] VITALS: BP 111/43; PULSE 68; RESP 14; TEMP 36.4; O2SAT 96
[2022-06-14 06:43] LABS: Basophils Absolute Auto 0.1 K/mm3 (0.0-0.1); Basophils Percent Auto 0.6 % (0.2-1.2); Eosinophils Absolute Auto 0.4 K/mm3 (0-0.3); Eosinophils Percent Auto 4.9 % (0-4.4); Hematocrit 24.3 % (37.0-47.0); Immature Granulocyte Absolute 0.03 K/mm3 (0.00-0.031); Immature Granulocyte Percent A 0.4 % (0-0.5); Lymphocytes Absolute Auto 2.16 K/mm3 (0.9-3.2); Lymphocytes Percent Auto 27.9 % (18.3-44.2); Mean Corpuscular HGB Conc 32.9 g/dl (32-36); Mean Corpuscular Volume 109.5 fl (80-100); Mean Platelet Volume 11.4 fl (7.4-10.4); Monocytes Absolute Auto 0.6 K/mm3 (0.1-0.6); Monocytes Percent Auto 7.8 % (2.6-8.5); Neutrophils Absolute Auto 4.5 K/mm3 (1.3-6.7); Neutrophils Percent Auto 58.4 % (45.5-73.1); Platelet Count Result 337 k/mm3 (150-375); Red Blood Count 2.22 M/mm3 (4.2-5.4); Red Cell Distribution Width 22.3 % (11.5-14.5); White Blood Count 7.7 K/mm3 (4.5-10.0)
[2022-06-14 06:51] LABS: Alanine Aminotransferase 15 U/L (6-35); Albumin Level 3.5 g/dL (3.5-5.1); Alkaline Phosphatase 77 U/L (38-126); Anion Gap 6 mmol/L (8-16); Aspartate Amino Transferase 18 U/L (14-36); Bilirubin,Total 0.6 mg/dL (0.2-1.3); Blood Urea Nitrogen 80 mg/dL (7-17); Calcium 11.4 mg/dL (8.4-10.2); Carbon Dioxide 24 mmol/L (22-30); Chloride 109 mmol/L (98-107); Estimated CRCL calculation 26 ml/min; Estimated Glomerular Filt Rate 24; Glucose 113 mg/dL (65-110); Potassium 4.2 mmol/L (3.4-5.0); Sodium 139 mmol/L (137-145)
[2022-06-14 07:27] LABS: Anisocytosis 2+ (NORMAL); Hypochromasia 2+ (NORMAL); Platelet Estimate Adequate (Adequate); Schistocytes None Seen (NORMAL)
[2022-06-14 08:08] LABS: Glucose Point of Care 112 mg/dl (65-105)
[2022-06-14] MEDS: MAGNESIUM OXIDE 400 MG TABLET PO ×2 (08:34→17:11)
[2022-06-14] MEDS: PANTOPRAZOLE SOD SESQUIHYDRATE 20 MG TAB PO (08:34)
[2022-06-14] MEDS: FUROSEMIDE 40 MG TABLET PO (08:34)
[2022-06-14] MEDS: dilTIAZem HCL CD 180 MG CAP.ER.24H 360 MG PO (08:34)
[2022-06-14 08:36] LABS: Creatine Kinase 25 U/L (30-135); Magnesium 2.5 mg/dL (1.6-2.3)
[2022-06-14 09:08] LABS: Creatinine Urine 56.1 mg/dL; Urea Random Urine 759 MG/DL
[2022-06-14 09:13] LABS: Sodium Urine Random 51 meq/L
[2022-06-14 09:27] VITALS: BMI 35.2
--- NOTE | 2022-06-14 09:33 | WPDNEURCNPN ---
Assessment and Plan Assessment and plan (1) Left-sided weakness: Code(s): R53.1 - Weakness Status: Acute (2) Paroxysmal atrial fibrillation: Code(s): I48.0 - Paroxysmal atrial fibrillation Status: Acute (3) Type 2 diabetes mellitus: Code(s): E11.9 - Type 2 diabetes mellitus without complications Status: Acute (4) Acute on chronic kidney failure: Code(s): N17.9 - Acute kidney failure, unspecified; N18.9 - Chronic kidney disease, unspecified Status: Acute Mague Erwin is a 81 year old female with a history of diabetes, hypertension, atrial fibrillation, chronic kidney disease, anemia, DARCY, presenting from [facility] after she was found to have low hemoglobin. She also reported weakness in the left side and numbness on the left side that has been going on for over a year. She stroke risk factors, so concern is highest for stroke. She has a pacemaker so we will not be able to get an MRI brain while she is admitted, but I would strongly recommend that she get one done as outpatient with pacemaker compatible MRI machine ([facility]). - MRI brain w/o contrast - Resume anticoagulation when appropriate Consult date: 06/14/22 Time Seen: 12:08 Reason for consult: Left sided weakness HPI: Jud Erwin is a 81 year old female with a history of diabetes, hypertension, atrial fibrillation, chronic kidney disease, anemia, DARCY, presenting from [facility] after she was found to have low hemoglobin. Patient recently had lab work done for 70 lb weight loss over the past 10 months. On her labs, her hgb was 7, but when it was repeated yesterday it had dropped down to 6.3. In addition patient has had ongoing nausea, loss of appetite, lightheadedness, and dizziness. She is on Eliquis but denies any bloody stools. Her stool Hemoccult was negative in the ED. Patient also reports left sided weakness involving the left upper extremity and left lower extremity that has been going on over the past year. Patient reports having a CT done for this indication at [facility] which was reportedly unremarkable. We are still waiting on records. She reports she did not have an MRI done. Patient has had weakness in the left arm and leg for several years now. She started having generalized weakness as well about two months ago. She has had trouble with swallowing for many years, and feels like food gets stuck in her esophagus. She does have a history of hiatal hernia. She has numbness in both legs, but the left leg is more numb compared to the right. She also has numbness in the left arm. Patient has not been able to get MRI due to her pacemaker -- she had one placed in 2016 and then it was changed in 2019. Review of Systems Constitutional: Constitutional: Reports weakness Eyes: Eyes: Reports no additional eye complaints ENT: Denies dysphagia Cardiovascular: Cardiovascular: Reports no additional cardiovascular complaints Respiratory: Respiratory: Reports dyspnea Gastrointestinal: Gastrointestinal: Reports abdominal pain Genitourinary: Genitourinary: Reports no additional female genitourinary complaints Musculoskeletal: Musculoskeletal: Reports arthralgias Integumentary/Breasts: Skin/Breast: Reports system reviewed and no additional complaints, except as docu Neurologic: Reports as per HPI Psychiatric: Psychiatric: Reports depression PMFSH Past Medical History Medical History Anxiety Arthritis Chronic anemia Chronic anticoagulation Chronic kidney disease, stage 3 Coronary artery disease Folate deficiency Gastroesophageal reflux disease Gout Hypertension Obstructive sleep apnea Overactive bladder Paroxysmal atrial fibrillation Spinal stenosis Type 2 diabetes mellitus Venous insufficiency Vitamin B12 deficiency Surgical History Surgical History History of coronary artery stent
--- NOTE | 2022-06-14 11:45 | P.PNIM_ITS ---
Progress Note: A&P Assessment and Plan (1) Macrocytic anemia: Code(s): D53.9 - Nutritional anemia, unspecified Status: Acute Assessment and Plan: * Hgb reported to be 6.3 * Currently 8.0/24.3 * No reports of notable bleeding * occult blood negative * Anemia labs iron 109, TIBC 303, % sat 36, Transferrin 200, ferritin 135.00, B12 973, folate 7.0 * One unit of PRBC given in the ED * most likely related to anemia of chronic disease * Continue to trend labs * transfuse as indicated (2) Left-sided weakness: Code(s): R53.1 - Weakness Status: Acute Assessment and Plan: * Noted to be progressing over the last several months * Records requested from [facility] as she had work up there * PT/OT ordered * Neurology consulted thank you for your help (3) Hypercalcemia: Code(s): E83.52 - Hypercalcemia Status: Acute Assessment and Plan: * Calcium noted to be elevated at 11.9 * Creatinine also elevated * Most likely related to dehydration * continue to trend labs * nephrology has been consulted (4) Acute on chronic kidney failure: Code(s): N17.9 - Acute kidney failure, unspecified; N18.9 - Chronic kidney disease, unspecified Status: Acute Assessment and Plan: * Creatinine elevated at 2.30 upon admission * Currently trending down at 2.00 * From what is listed baseline could be as good as 0.9, only few values notable * IV fluids given * Urine does not appear infectious * Urine labs ordered * Renal ultrasound ordered * FEUrea score indicates pre-renal * Continue fluids * Trend labs * nephrology consulted thank you for your help (5) Type 2 diabetes mellitus: Code(s): E11.9 - Type 2 diabetes mellitus without complications Status: Acute Assessment and Plan: * Current glucose 113 * A1c 6.9 * Initiate sliding scale insulin * Accu-Cheks * hypoglycemic protocol * Trend glucose * Adjust therapy as indicate (6) Paroxysmal atrial fibrillation: Code(s): I48.0 - Paroxysmal atrial fibrillation Status: Acute Assessment and Plan: * Eliquis on hold given anemia * Continue diltiazem with parameters * Controlled * continue tele monitoring at this time (7) Gastroesophageal reflux disease: Code(s): K21.9 - Gastro-esophageal reflux disease without esophagitis Status: Acute Assessment and Plan: * Continue PPI * Stable and chronic Time Spent With Patient Time: 51 minutes Time with patient: Greater than 35 minutes Subjective Date/time seen: 06/14/22 1145 Interval history: 06/14/22 114 Patient is laying in bed. she stated that she is feeling better. She is worried about her bilateral lower extremity weakness. H/H is stable at this time. Currently her creatinine 2.0 today which is down from admission. She denies any chest pain, shortness of breath, nausea, vomiting, diarrhea, constipation. 06/13/22? 18:30 This is a very pleasant 81-year-old female with multiple medical problems i ncluding coronary artery disease, paroxysmal atrial fibrillation on chronic anticoagulation hypertension, obstructive sleep apnea, type 2 diabetes mellitus, chronic ki
--- NOTE | 2022-06-14 11:45 | PM.IMPN ---
Progress Note: A&P Assessment and Plan (1) Macrocytic anemia: Code(s): D53.9 - Nutritional anemia, unspecified Status: Acute Assessment and Plan: Hgb reported to be 6.3 Currently 8.0/24.3 No reports of notable bleeding occult blood negative Anemia labs iron 109, TIBC 303, % sat 36, Transferrin 200, ferritin 135.00, B12 973, folate 7.0 One unit of PRBC given in the ED most likely related to anemia of chronic disease Continue to trend labs transfuse as indicated (2) Left-sided weakness: Code(s): R53.1 - Weakness Status: Acute Assessment and Plan: Noted to be progressing over the last several months Records requested from [facility] as she had work up there PT/OT ordered Neurology consulted thank you for your help (3) Hypercalcemia: Code(s): E83.52 - Hypercalcemia Status: Acute Assessment and Plan: Calcium noted to be elevated at 11.9 Creatinine also elevated Most likely related to dehydration continue to trend labs nephrology has been consulted (4) Acute on chronic kidney failure: Code(s): N17.9 - Acute kidney failure, unspecified; N18.9 - Chronic kidney disease, unspecified Status: Acute Assessment and Plan: Creatinine elevated at 2.30 upon admission Currently trending down at 2.00 From what is listed baseline could be as good as 0.9, only few values notable IV fluids given Urine does not appear infectious Urine labs ordered Renal ultrasound ordered FEUrea score indicates pre-renal Continue fluids Trend labs nephrology consulted thank you for your help (5) Type 2 diabetes mellitus: Code(s): E11.9 - Type 2 diabetes mellitus without complications Status: Acute Assessment and Plan: Current glucose 113 A1c 6.9 Initiate sliding scale insulin Accu-Cheks hypoglycemic protocol Trend glucose Adjust therapy as indicate (6) Paroxysmal atrial fibrillation: Code(s): I48.0 - Paroxysmal atrial fibrillation Status: Acute Assessment and Plan: Eliquis on hold given anemia Continue diltiazem with parameters Controlled continue tele monitoring at this time (7) Gastroesophageal reflux disease: Code(s): K21.9 - Gastro-esophageal reflux disease without esophagitis Status: Acute Assessment and Plan: Continue PPI Stable and chronic Time Spent With Patient Time: 51 minutes Time with patient: Greater than 35 minutes Subjective Date/time seen: 06/14/22 1145 Interval history: 06/14/22 114 Patient is laying in bed. she stated that she is feeling better. She is worried about her bilateral lower extremity weakness. H/H is stable at this time. Currently her creatinine 2.0 today which is down from admission. She denies any chest pain, shortness of breath, nausea, vomiting, diarrhea, constipation. 06/13/22? 18:30 This is a very pleasant 81-year-old female with multiple medical problems including coronary artery disease, paroxysmal atrial fibrillation on chronic anticoagulation hypertension, obstructive sleep apnea, type 2 diabetes mellitus, chronic kidney disease, and other comorbidities who presented to the emergency department via EMS from [facility] for evaluation after she was found to have a low hemoglobin level. Patient provides the following history. She had lab work done on June 09 for evaluation of a 70 lb weight loss in the last 10 months an ongoing nausea, bloating, early satiety, lightheadedness, dizziness, and weakness. Hemoglobin was reportedly 7.0 at that time and that was repeated today and she was sent in as her hemoglobin apparently dropped down to 6.3. She is on Eliquis and has not noticed any dark stools recently but has noticed tar-like stool on occasion but not recently (stool was Hemoccult negative
[2022-06-14 11:52] LABS: Glucose Point of Care 183 mg/dl (65-105)
[2022-06-14 14:00] VITALS: BP 126/42; PULSE 79; RESP 18; TEMP 36.6; O2SAT 97
[2022-06-14 16:52] LABS: Glucose Point of Care 131 mg/dl (65-105)
[2022-06-14 17:32] LABS: IFOB Positive Control Positive; Immunochemical Fecal Occult Bl Negative (N)
[2022-06-14] MEDS: TOLNAFTATE 1% POWDER 45 GM BTL 1 APPLIC TOPICAL (20:21)
[2022-06-14 21:54] VITALS: BP 119/50; PULSE 85; RESP 18; TEMP 36.2; O2SAT 100
[2022-06-14 22:16] LABS: Glucose Point of Care 164 mg/dl (65-105)
[2022-06-15] MEDS: ACETAMINOPHEN 325 MG TABLET 650 MG PO (05:27)
[2022-06-15 05:44] VITALS: BP 123/50; PULSE 97; RESP 16; TEMP 36.6; O2SAT 97
[2022-06-15 06:07] LABS: Alanine Aminotransferase 14 U/L (6-35); Albumin Level 3.5 g/dL (3.5-5.1); Alkaline Phosphatase 68 U/L (38-126); Anion Gap 6 mmol/L (8-16); Aspartate Amino Transferase 24 U/L (14-36); Bilirubin,Total 0.7 mg/dL (0.2-1.3); Blood Urea Nitrogen 74 mg/dL (7-17); Calcium 10.8 mg/dL (8.4-10.2); Carbon Dioxide 25 mmol/L (22-30); Chloride 108 mmol/L (98-107); Estimated CRCL calculation 29 ml/min; Estimated Glomerular Filt Rate 27; Glucose 108 mg/dL (65-110); Magnesium 2.1 mg/dL (1.6-2.3); Potassium 4.4 mmol/L (3.4-5.0); Sodium 139 mmol/L (137-145)
[2022-06-15 06:18] LABS: Basophils Absolute Auto 0.1 K/mm3 (0.0-0.1); Basophils Percent Auto 0.5 % (0.2-1.2); Eosinophils Absolute Auto 0.4 K/mm3 (0-0.3); Eosinophils Percent Auto 4.1 % (0-4.4); Hematocrit 23.5 % (37.0-47.0); Hemoglobin 7.6 g/dL (12.0-15.0); Immature Granulocyte Absolute 0.12 K/mm3 (0.00-0.031); Immature Granulocyte Percent A 1.3 % (0-0.5); Lymphocytes Percent Auto 28.8 % (18.3-44.2); Mean Corpuscular HGB Conc 32.3 g/dl (32-36); Mean Corpuscular Hemoglobin 34.9 pg (26-34); Mean Corpuscular Volume 107.8 fl (80-100); Mean Platelet Volume 11.1 fl (7.4-10.4); Monocytes Absolute Auto 0.7 K/mm3 (0.1-0.6); Monocytes Percent Auto 7.9 % (2.6-8.5); Neutrophils Absolute Auto 5.4 K/mm3 (1.3-6.7); Neutrophils Percent Auto 57.4 % (45.5-73.1); Platelet Count Result 336 k/mm3 (150-375); Red Blood Count 2.18 M/mm3 (4.2-5.4); Red Cell Distribution Width 22.1 % (11.5-14.5); White Blood Count 9.4 K/mm3 (4.5-10.0)
[2022-06-15 07:15] LABS: Anisocytosis 3+ (NORMAL); Macrocytosis 1+ (NORMAL); Platelet Estimate Adequate (Adequate); Tear Drop Cells 1+ (NORMAL)
[2022-06-15 07:16] LABS: Hypochromasia 1+ (NORMAL); Schistocytes None Seen (NORMAL)
[2022-06-15] MEDS: dilTIAZem HCL CD 180 MG CAP.ER.24H 360 MG PO (09:09)
[2022-06-15] MEDS: oxyBUTYnin CHLORIDE 5 MG TABLET PO ×2 (09:09→17:07)
[2022-06-15] MEDS: FUROSEMIDE 40 MG TABLET PO (09:09)
[2022-06-15] MEDS: MAGNESIUM OXIDE 400 MG TABLET PO ×2 (09:10→17:07)
[2022-06-15] MEDS: TOLNAFTATE 1% POWDER 45 GM BTL 1 APPLIC TOPICAL ×2 (09:10→21:34)
[2022-06-15] MEDS: PANTOPRAZOLE SOD SESQUIHYDRATE 20 MG TAB PO (09:10)
[2022-06-15 09:20] LABS: Glucose Point of Care 163 mg/dl (65-105)
--- NOTE | 2022-06-15 09:30 | PM.CNNEP ---
Assessment and Plan Assessment and plan (1) Acute on chronic kidney failure: Code(s): N17.9 - Acute kidney failure, unspecified; N18.9 - Chronic kidney disease, unspecified Status: Acute Assessment and Plan: Acute renal failure Chronic kidney disease stage IIIA at baseline Weight loss History of obesity, obstructive sleep apnea, atrial fibrillation, diabetes mellitus, hypertension Plan:-probable volume depletion hypercalcemia be related to the volume depletion as well, however other causes need to be ruled out. Patient has had hypoperfusion issues with sleep apnea and that caused the kidneys to go up and down relative to his function. There has been evidence for underlying chronic kidney disease in the past. Of calcitriol. Hydrate. Look at labs as ordered. The weight loss is concerning and we need to rule out malignancy. Will follow. (2) Hypercalcemia: Code(s): E83.52 - Hypercalcemia Status: Acute Assessment and Plan: Hypercalcemia in a patient previously diagnosed with secondary hyperparathyroidism and calcitriol therapy Plan: -agree with holding the calcitriol -look at PTH level, if suppressed then will need to recheck after several days of holding calcitriol. If still low with the weight loss would need to consider malignancy. Also recommend in this situation looking at a PTH related protein. History of Present Illness Reason for Consult Consult date: 06/15/22 Chief Complaint Chief complaint: Symptomatic Anemia History of Present Illness Narrative: Chief complaint: Asked to see for renal failure, hypercalcemia History of presenting illness: 81-year-old female who we have seen in the office for stage IIIB chronic kidney disease, though she has fluctuating creatinine levels. She has underlying problems of obstructive sleep apnea, diabetes mellitus, coronary artery disease, and she has been thought to have secondary hyperparathyroidism. Calcium level fall 2000 was 9.4, creatinine was 1.35 mg/dL. Currently has come in with an elevated calcium level and acute on chronic renal failure with labs as resulted. BUN and creatinine were 93 and 2.30 mg/dL respectively. Serum calcium level is 11.9 mg/dL. There has been any improvement in the renal disease as well as the calcium. Her urinalysis is essentially bland at admission. At the last visit in 2000 the patient was on calcitriol for secondary hyperparathyroidism. half-way notes indicate use of calcitriol at 0.25 mcg every other day thrice a week. At admission blood pressure was 125/91. There have been no recorded drops in blood pressure. [facility] She has been admitted for further management. No mehdi blood noted from the GI tract, she is noted to be on Eliquis therapy. Significant is weight loss of 70 lb over the last 10 months. The patient occasionally has nausea and vomiting. Gets tired easily. Over the last several weeks she has had decreased oral intake. She continues to make urine. Darker colored urine is noted today. Review of senior care labs shows a BUN of 101 and creatinine of 2.6 from June 13, 2022. In February BUN and creatinine were 58 and 1.7 respectively. She has been anemic also this month with a hemoglobin drop from 7.0-6.3 over a few days over the last several days prior to admission. I do not find an echocardiogram report in the electronic health record system. There is currently no lower extremity swelling. She is not waking up short of breath at night. Patient indicates that she has not followed up in the office because she ended up in a senior care and he did not have access to come to the office. Review of Systems Review of Systems: As per history of presenting illness. Rest she denies and is negative. [facility] Past Medical History Medical History Anxiety Arthritis Chronic anemia Chronic
[2022-06-15 11:49] LABS: Glucose Point of Care 122 mg/dl (65-105)
[2022-06-15 14:00] VITALS: BP 132/60; PULSE 86; RESP 18; TEMP 36.1; O2SAT 98
--- NOTE | 2022-06-15 16:34 | PM.IMPN ---
Progress Note: A&P Assessment and Plan (1) Macrocytic anemia: Code(s): D53.9 - Nutritional anemia, unspecified Status: Acute Assessment and Plan: reportedly and hemoglobin of 6.3 on outpatient labs. Patient was transfuse 1 unit packed RBCs in the ED with improvement in hemoglobin. Hemoglobin 7.6 this morning. No evidence of active bleeding. Stool occult blood test was negative. [place] to be consistent with anemia of chronic disease. There is concern for possible malignancy given complaints of unintentional weight loss. continue to monitor H&H closely (2) Left-sided weakness: Code(s): R53.1 - Weakness Status: Acute Assessment and Plan: This has developed within the last several months. Patient reports she was hospitalized at [facility] and her imaging was reportedly unremarkable. Will hold on ordering any tests pending review of records which were requested from that stay; this is not an acute finding. appreciate neurology recommendations. She will need outpatient MRI at a pacemaker compatible facility. appreciate PT/OT evals (3) Hypercalcemia: Code(s): E83.52 - Hypercalcemia Status: Acute Assessment and Plan: this is likely due to dehydration and calcium levels are improving with IV fluids. Per Nephrology, patient has history of secondary hyperparathyroidism. home calcitriol is on hold. PTH level is pending (4) Acute on chronic kidney failure: Code(s): N17.9 - Acute kidney failure, unspecified; N18.9 - Chronic kidney disease, unspecified Status: Acute Assessment and Plan: creatinine elevated on presentation up to 2.3. Review of prior labs suggest baseline of 1-1.3. One slightly improved to 1.8 today. [place] to be most likely related to dehydration/hypoperfusion. Continue IV fluids. monitor renal function closely (5) Type 2 diabetes mellitus: Code(s): E11.9 - Type 2 diabetes mellitus without complications Status: Acute Assessment and Plan: blood sugars are reasonably controlled. Continue sliding scale insulin, Accu-Cheks, and hypoglycemic protocol. (6) Paroxysmal atrial fibrillation: Code(s): I48.0 - Paroxysmal atrial fibrillation Status: Acute Assessment and Plan: rate is controlled. Eliquis on hold given anemia. Continue diltiazem with parameters. (7) Gastroesophageal reflux disease: Code(s): K21.9 - Gastro-esophageal reflux disease without esophagitis Status: Acute Assessment and Plan: Continue PPI. (8) Weight loss: Code(s): R63.4 - Abnormal weight loss Status: Acute Assessment and Plan: Patient reports approximately 70 lb unintentional weight loss over the past 10 months patient does endorse poor appetite and may be due to an appropriate p.o. intake patient noted to have moderate malnutrition malignancy not excludable. So far no obvious etiology. CT of the chest/abdomen/pelvis completed today. see plan below reportedly recently underwent EGD and colonoscopy with no acute findings (9) Abnormal CT scan, bladder: Code(s): R93.41 - Abnormal radiologic findings on diagnostic imaging of renal pelvis, ureter, or bladder Status: Acute Assessment and Plan: CT of the chest/abdomen/pelvis showed dependent material in the bladder which may be hematoma or other sediment or less likely malignancy consult to Urology, appreciate recommendations consider cystoscopy tomorrow. Will make NPO in the event this can be added on Subjective Date/time seen: 06/15/22 16:34 Interval history: date of service: 06/15/2022 Jud Erwin is an 81-year-old female with a history of CKD, CAD, GERD, hypertension, DARCY, paroxysmal atrial fibrillation, type 2 diabetes mellitus, and several other medical problems seen in follow-up for weakness and anemia. Patient reports that she is feeling better today, however she
[2022-06-15 16:36] LABS: Glucose Point of Care 179 mg/dl (65-105)
[2022-06-15 20:04] LABS: Ionized Calcium 6.4 mg/dL (4.7-5.5)
[2022-06-15] MEDS: BISACODYL 5 MG TABLET EC PO (21:34)
[2022-06-15 21:46] LABS: Albumin 3.5 g/dL (3.8-4.8); Alpha 1 Globulin 0.3 g/dL (0.2-0.3); Alpha 2 Globulin 0.7 g/dL (0.5-0.9); Beta 1 Globulin 0.3 g/dL (0.4-0.6); Gamma Globulin 0.9 g/dL (0.8-1.7)
[2022-06-15 22:00] VITALS: BP 119/46; PULSE 82; RESP 18; TEMP 36.2; O2SAT 97
[2022-06-15 22:40] VITALS: PULSE 87; O2SAT 95
[2022-06-16] VITALS (7 sets, daily range): BP systolic 103–136; BP diastolic 37–60; PULSE 81–101; RESP 15–19; TEMP 36.3–37.6; O2SAT 96–100
[2022-06-16 06:40] LABS: Anion Gap 5 mmol/L (8-16); Blood Urea Nitrogen 70 mg/dL (7-17); Calcium 10.4 mg/dL (8.4-10.2); Carbon Dioxide 28 mmol/L (22-30); Chloride 104 mmol/L (98-107); Estimated CRCL calculation 27 ml/min; Estimated Glomerular Filt Rate 25; Glucose 108 mg/dL (65-110); Potassium 3.9 mmol/L (3.4-5.0); Sodium 137 mmol/L (137-145)
--- NOTE | 2022-06-16 06:50 | WPDURCON ---
Assessment and Plan Assessment and plan (1) Abnormal CT scan, bladder: Code(s): R93.41 - Abnormal radiologic findings on diagnostic imaging of renal pelvis, ureter, or bladder Status: Acute Assessment and Plan: Given patient's absence of urological history, absence of voiding symptoms and normal urinalysis my concern over the the findings of debris in the dependent portion of her bladder on CT scan is very low. At some point, however, it may warrant a simple cystoscopy. May be best to plan doing this as an outpatient (in the office) as the OR schedule today will preclude getting that done. Urology Consult Note HPI Date Seen: 06/16/22 Requesting Physician: Yesika Barcenas PA-C Primary Care Provider: Marquis DennisKhari Consult Narrative Narrative: Jud Erwin is a 81 year old female, previously unknown to our practice and without prior urological history of significance, admitted with weakness likely due to anemia and renal insufficiency. During the course of admission a renal ultrasound has shown bilateral renal atrophy without hydronephrosis. CT scan of the abdomen and pelvis, likewise, shows no significant acute upper urinary tract findings but she was noted to have some sludge/debris in the dependent portion of her bladder. Patient's admitting urinalysis was completely normal and she is asymptomatic, denying dysuria urgency frequency or history of urinary tract infection. Review of Systems Cardiovascular: Cardiovascular: Denies chest pain, Denies lightheadedness, Denies palpitations and Denies dyspnea Respiratory: Respiratory: Denies dyspnea Gastrointestinal: Gastrointestinal: Denies diarrhea, Denies nausea and Denies vomiting Genitourinary: Genitourinary: Denies hematuria and Denies dysuria Endocrine: Endocrine: Denies palpitations [facility] Past Medical History Medical History Anxiety Arthritis Chronic anemia Chronic anticoagulation Chronic kidney disease, stage 3 Coronary artery disease Folate deficiency Gastroesophageal reflux disease Gout Hypertension Obstructive sleep apnea Overactive bladder Paroxysmal atrial fibrillation Spinal stenosis Type 2 diabetes mellitus Venous insufficiency Vitamin B12 deficiency Surgical History Surgical History History of coronary artery stent placement History of hysterectomy History of permanent cardiac pacemaker placement History of tonsillectomy Family History Family History Mother Diabetes mellitus AA (aortic aneurysm) Sibling AA (aortic aneurysm) Breast cancer Social History Social History Social History: Healthcare power of tax associate attorney: Huong Whittington, son. Code status: Full code. Smoking status: Former smoker Smoking end date: 05/18/73 Alcohol intake: never Substance use: never Lack of Transportation: No Lack of Food: Never True Current Housing: I Have Housing Concerned About Future Housing: No Difficulty Paying Gas/Electric Bills: No Difficulty Paying for Meds: No Currently Unemployed: No Education: High School Diploma/GED Difficulty w/ Childcare or Family Care: No Additional living arrangements comments: . She has 6 children. Resident at [facility]. Spiritual care concerns: No Meds Home Medications and Allergies Home Medications Medication Instructions Recorded Confirmed Type allopurinol 300 mg tablet 300 mg PO DAILY 12/27/21 06/13/22 History apixaban 5 mg tablet (Eliquis) 2.5 mg PO BID 12/27/21 06/13/22 History calcitriol 0.25 mcg capsule 0.25 mcg PO EVERY OTHER DAY 12/27/21 06/13/22 History diltiazem HCl 360 mg 360 mg PO DAILY 12/27/21 06/13/22 History capsule,extended release 24 hr furosemide 80 mg tablet 40 mg PO DAILY 12/27
[2022-06-16 07:17] LABS: Hemoglobin 7.5 g/dL (12.0-15.0); Mean Corpuscular HGB Conc 32.6 g/dl (32-36); Mean Corpuscular Hemoglobin 36.6 pg (26-34); Mean Corpuscular Volume 112.2 fl (80-100); Mean Platelet Volume 11.2 fl (7.4-10.4); Platelet Count Result 318 k/mm3 (150-375); Red Blood Count 2.05 M/mm3 (4.2-5.4); Red Cell Distribution Width 21.9 % (11.5-14.5); White Blood Count 9.6 K/mm3 (4.5-10.0)
[2022-06-16 07:38] LABS: Glucose Point of Care 117 mg/dl (65-105)
--- NOTE | 2022-06-16 08:25 | WPDHPUPDATE1 ---
History and Physical Update Update Date/Time: 06/16/22 08:25 History and Physical has been reviewed, including an updated exam of the patient. There are NO changes in the patient's condition. Risks, benefits, and alternatives have been discussed and questions answered. Patient agrees to proceed with procedure.
--- NOTE | 2022-06-16 08:37 | WPDANESEPPF ---
Anes - Initial Pre Proc Eval Procedure: Operation Date: 06/16/22 16:15 Proposed Procedures p Cystoscopy - Asad Hilliard MD Date/Time: 06/16/22 08:37 Surgeon: Yesika Barcenas PA-C Pre Op Diagnosis: Symptomatic Anemia Patient Data Age: 81 Gender: F Height: 1.75 m Weight: 104.9 kg Last Vital Signs Temp 36.7 C 06/16/22 05:20 Pulse 83 06/16/22 05:20 Resp 18 06/16/22 05:20 BP 103/37 L 06/16/22 05:20 Pulse Ox 99 06/16/22 05:20 O2 Del Method CPAP 06/15/22 22:40 Allergies Allergy/AdvReac Type Severity Reaction Status Date / Time clonidine [From Romero] Allergy Swelling Verified 06/13/22 20:02 of Lip/Tongue/Throat Home Medications Medication Instructions Recorded Confirmed Type allopurinol 300 mg tablet 300 mg PO DAILY 12/27/21 06/13/22 History apixaban 5 mg tablet (Eliquis) 2.5 mg PO BID 12/27/21 06/13/22 History calcitriol 0.25 mcg capsule 0.25 mcg PO EVERY OTHER DAY 12/27/21 06/13/22 History diltiazem HCl 360 mg 360 mg PO DAILY 12/27/21 06/13/22 History capsule,extended release 24 hr furosemide 80 mg tablet 40 mg PO DAILY 12/27/21 06/13/22 History insulin lispro 100 unit/mL See Protocol subcut ACHS 12/27/21 06/13/22 History subcutaneous solution magnesium oxide 400 mg (241.3 mg 400 mg PO BID 12/27/21 06/13/22 History magnesium) tablet nystatin 100,000 unit/gram topical 100,000 unit topical DAILY 12/27/21 06/13/22 History powder (Nyamyc) pantoprazole 20 mg tablet,delayed 20 mg PO DAILY 12/27/21 06/13/22 History release lanolin alcohols-mineral 1 applic topical DAILY #60 grams 01/03/22 06/13/22 Rx oil-w.petrolatum-ceresin topical cream (Minerin Creme topical) losartan 100 mg tablet 100 mg PO DAILY #30 tabs 01/03/22 06/13/22 Rx polyethylene glycol 3350 17 gram 17 g PO QAM #30 ea 01/03/22 06/13/22 Rx oral powder packet (Miralax) acetaminophen 650 mg tablet 650 mg PO Q4H PRN Pain (Scale 06/13/22 06/13/22 History Score 1-3) aspirin 81 mg tablet,delayed 81 mg PO DAILY 06/13/22 06/13/22 History release bisacodyl 5 mg tablet,delayed 5 mg PO HS 06/13/22 06/13/22 History release cyanocobalamin (vitamin B-12) 1,000 mcg PO DAILY 06/13/22 06/13/22 History 1,000 mcg tablet diclofenac sodium 50 mg 50 mg PO TID PRN Muscle Pain 06/13/22 06/13/22 History tablet,delayed release ergocalciferol (vitamin D2) 50,000 50,000 unit PO WEEKLY 06/13/22 06/13/22 History unit tablet ferrous sulfate 325 mg (65 mg 325 mg PO DAILY 06/13/22 06/13/22 History iron) tablet hydrocodone 5 mg-acetaminophen 325 1 tablet PO Q8H PRN Pain, Severe 06/13/22 06/13/22 History mg tablet magnesium hydroxide 400 mg/5 mL 30 ml PO HS PRN Constipation 06/13/22 06/13/22 History oral suspension (Milk of Magnesia) menthol 4 % topical gel (Biofreeze 1 applic topical QID PRN Muscle 06/13/22 06/13/22 History (menthol)) Pain multivitamin with minerals 1 tablet PO DAILY 06/13/22 06/13/22 History oxybutynin chloride 5 mg tablet 5 mg PO BID 06/13/22 06/13/22 History senna-docusate sodium tablet 2 tablet PO BID 06/13/22 06/13/22 History spironolactone 25 mg tablet 25 mg PO HS 06/13/22 06/13/22 History (Aldactone) tramadol 50 mg tablet 50 mg PO HS PRN Pain, Moderate 06/13/22 06/13/22 History Laboratory Tests 06/13/22 06/13/22 06/15/22 18:27 18:27 09:15 WBC RBC Hgb Hct MCV MCH MCHC RDW Plt Count MPV Sodium Potassium Chloride Carbon Dioxide Anion Gap BUN Creatinine Estim Creat Clear Calc Estimated GFR Glucose POC Capillary Glucose 163 mg/dl H mg/dl (65-105) Calcium Ionized Calcium Laura 6.4 mg/dL H mg/dL (4.7-5.5) Total Protein 6.0 g/dL L g/dL (6.1-8.1) Albumin
[2022-06-16] MEDS: LACTATED RINGERS 1,000 ML 30 ML IV CONT (09:00)
[2022-06-16 09:07] LABS: Glucose Point of Care 109 mg/dl (65-105)
[2022-06-16] MEDS: ceFAZolin 2 GM/D5W 50 ML 2 GM/50 ML BAG IVPB (09:30)
--- NOTE | 2022-06-16 10:04 | W.PM.PROC2 ---
Procedure Note - Detailed Date of Procedure 06/16/22 Pre-op Diagnosis Symptomatic anemia / debris in bladder Post-op Diagnosis Same Procedure Performed Cystoscopy Surgeon Asad Hillirad MD Anesthesia MAC Findings Normal bladder Description of Procedure Patient is brought the op suite where she has prepped draped in routine sterile fashion while in dorsal lithotomy position. Systemic sedation is administered per the anesthesia department. Cystoscopy is undertaken with a 19 F rigid cystoscope. Bladder neck and urethra endoscopically normal. There is a small amount of debris in the dependent portion of the bladder, likely calcium phosphate crystals. There was no pathological stones. The bladder mucosa is normal without hyperemia. There was no intravesical foreign body or neoplasm. She has a single orthotopic ureteral orifice bilateral with clear efflux. This represents a sense a normal cystoscopy. In the absence of voiding symptoms patient requires no additional urological follow-up. Urine Output 600 Drains No Packing No Pathology None sent Complications No immediate complications
[2022-06-16 10:08] LABS: Glucose Point of Care 115 mg/dl (65-105)
[2022-06-16] MEDS: oxyBUTYnin CHLORIDE 5 MG TABLET PO ×2 (10:56→16:44)
[2022-06-16] MEDS: FUROSEMIDE 40 MG TABLET PO (10:56)
[2022-06-16] MEDS: MAGNESIUM OXIDE 400 MG TABLET PO ×2 (10:56→16:44)
[2022-06-16] MEDS: PANTOPRAZOLE SOD SESQUIHYDRATE 20 MG TAB PO (10:56)
[2022-06-16] MEDS: polyethylene glycoL 3350 17 GM POWD.PACK PO (10:56)
[2022-06-16] MEDS: dilTIAZem HCL CD 180 MG CAP.ER.24H 360 MG PO (10:56)
[2022-06-16 11:27] LABS: Glucose Point of Care 111 mg/dl (65-105)
[2022-06-16 13:09] LABS: Hematocrit 24.5 % (37.0-47.0); Hemoglobin 7.6 g/dL (12.0-15.0)
--- NOTE | 2022-06-16 13:16 | PM.PNNEP ---
Progress Note: A&P Assessment and Plan (1) Acute on chronic kidney failure: Code(s): N17.9 - Acute kidney failure, unspecified; N18.9 - Chronic kidney disease, unspecified Status: Acute Assessment and Plan: Acute renal failure Chronic kidney disease stage IIIA at baseline Weight loss History of obesity, obstructive sleep apnea, atrial fibrillation, diabetes mellitus, hypertension Plan:- - renal function still indicative of some volume depletion, encouraged p.o. fluids -continue to keep an eye on renal function. (2) Hypercalcemia: Code(s): E83.52 - Hypercalcemia Status: Acute Assessment and Plan: Hypercalcemia in a patient previously diagnosed with secondary hyperparathyroidism and calcitriol therapy - PTH level is lower and normal, PTH related protein pending, serum protein electrophoresis no M spike noted. Probable exogenous source of calcium and dehydration Plan: -agree with holding the calcitriol, do not resume at discharge based on PTH level - await PTH related protein. Subjective Date/time seen: 06/16/22 13:16 Chief complaint follow-up of her renal problems - patient feels okay. status post cystoscopy which was essentially normal - feels better but still weak and she is not certain she can not stand up - no shortness of breath Exam Narrative: elderly home obese, comfortable with breathing at rest, dry oral mucosa normal skin turgor normal no JVD negative: Regular rhythm, no gallop, no rub, equal result, two views, soft nontender abdomen, edema negative, alert and oriented x3 Objective Data Vital Signs Vital Signs: Vital Signs - 24 hr 06/15/22 14:00 06/15/22 22:00 06/15/22 22:40 Temperature 36.1 C L 36.2 C L Pulse Rate 86 82 87 Respiratory Rate 18 18 Blood Pressure 132/60 119/46 L Pulse Oximetry 98 97 95 Oxygen Delivery CPAP Oxygen Flow Rate 06/16/22 05:20 06/16/22 09:12 06/16/22 09:53 Temperature 36.7 C 37.6 C 36.6 C Pulse Rate 83 101 H 89 Respiratory Rate 18 18 16 Blood Pressure 103/37 L 136/49 L 107/50 L Pulse Oximetry 99 97 99 Oxygen Delivery Room Air Simple Face Mask Oxygen Flow Rate 8 06/16/22 10:05 06/16/22 10:20 06/16/22 10:30 Temperature Pulse Rate 85 85 81 Respiratory Rate 18 19 15 Blood Pressure 108/50 L 113/45 L 121/50 L Pulse Oximetry 97 100 100 Oxygen Delivery Simple Face Mask Room Air Room Air Oxygen Flow Rate 8 06/16/22 10:56 Temperature Pulse Rate Respiratory Rate Blood Pressure Pulse Oximetry Oxygen Delivery Room Air Oxygen Flow Rate Intake/Output Intake/Output: Intake & Output 06/13/22 06/14/22 06/15/22 06/16/22 23:59 23:59 23:59 23:59 Intake Total 1350 2388 600 390 Output Total 600 1300 1200 1150 Balance 750 2702 -536 -549 Meds/Results Medications: Active Medications Generic Name Dose Route Start Last Admin Trade Name Freq PRN Reason Stop Dose Admin Acetaminophen 650 mg 06/13/22 23:46 06/15/22 05:27 Acetaminophen 325 Mg Tablet PO 650 mg Q6H PRN Administration Mild Pain (1-3) or Fever Bisacodyl 5 mg 06/13/22 23:55 06/15/22 21:34 Bisacodyl 5 Mg Tablet Ec PO 5 mg HS ROSANA Administration Dextrose 12.5 gm 06/13/22 23:46 Dextrose 50% 25 Gm/50 Ml Syringe IV PUSH PRN PRN Hypoglycemia Protocol Diltiazem HCl 360 mg 06/14/22 09:00 06/16/22 10:56 Diltiazem Hcl Cd 180 Mg Cap.Er.24h PO 360 mg QAM ROSANA Administration Furosemide 40 mg 06/14/22 09:00 06/16/22 10:56 Furosemide 40 Mg Tablet PO 40 mg DAILY ROSANA Administration Glucagon 1 mg 06/13/22 23:46 Glucagon For Inj 1 Mg Vial IM PRN PRN Hypoglycemia Protocol Glucose 15 gm 06/13/22 23:46 Glucose Oral Gel 15 Gm Of Glucse In 37.5 Gm Tube PO PRN PRN Hypoglycemia Protocol Dextrose 1,000 mls @ 100 mls/hr 06/13/22 23:46 Dextrose 5% 1,000 Ml IVPB PRN PRN Hypoglycemia Protocol Insulin Aspart 2 - 5 u
--- NOTE | 2022-06-16 14:17 | PCCCNOTE ---
On 06/16/22, the student, [Astrid Cardenas], provided care and completed [facility] documentation on this patient. I have reviewed the student's documentation and agree with the findings.
--- NOTE | 2022-06-16 15:14 | PM.DS ---
DS: Admitting Diagnosis Discharge Date 06/16/2022 Admitting Diagnosis anemia DS: Discharge Diagnosis Discharge Diagnosis (1) Macrocytic anemia: Code(s): D53.9 - Nutritional anemia, unspecified Status: Acute Assessment and Plan: reportedly had hemoglobin of 6.3 on outpatient labs. Patient was transfused 1 unit packed RBCs in the ED with improvement in hemoglobin. H&H remained stable following transfusion around 7.5. There was no evidence of active bleeding. Stool occult blood test negative. Urine negative for blood. iron panel reviewed, however appears was collected in conjunction with transfusion, so unsure of accuracy. B12 and folate levels reviewed. Possibly secondary to anemia of chronic disease in light of patient's chronic kidney disease. Malignancy considered giving complains of unintentional weight loss, however no source identified. Patient recently underwent EGD and colonoscopy at outside facility that was reportedly unremarkable. Concern for bone marrow dysfunction. Discussed case with Hematology and patient will follow-up as an outpatient to consider bone marrow biopsy. (2) Left-sided weakness: Code(s): R53.1 - Weakness Status: Acute Assessment and Plan: This has developed over the past several months. Patient reports she was hospitalized at [facility] and her imaging was reportedly unremarkable. She was evaluated by Neurology during admission. She needs to obtain an MRI, however not able to be completed at this facility due to pacemaker. She has been referred for outpatient MRI at pacemaker compatible facility. Continue to follow-up with neurology (3) Hypercalcemia: Code(s): E83.52 - Hypercalcemia Status: Acute Assessment and Plan: this is likely due to dehydration and calcium levels improved with IV fluids. Per Nephrology, patient has history of secondary hyperparathyroidism. home calcitriol was held and will continue to remain on hold per Nephrology recommendations. Continue outpatient follow-up with her card reader (4) Acute on chronic kidney failure: Code(s): N17.9 - Acute kidney failure, unspecified; N18.9 - Chronic kidney disease, unspecified Status: Acute Assessment and Plan: creatinine elevated on presentation up to 2.3. Review of prior labs suggest baseline of 1-1.5. felt to be secondary to dehydration / hypoperfusion. Creatinine improved with IV fluids and was 1.9 at time of discharge. Repeat labs on Monday with results to PCP. Continue monitoring of renal function. Encourage adequate p.o. fluid intake. (5) Type 2 diabetes mellitus: Code(s): E11.9 - Type 2 diabetes mellitus without complications Status: Acute Assessment and Plan: blood sugars reasonably controlled during admission. continue home insulin regimen (6) Paroxysmal atrial fibrillation: Code(s): I48.0 - Paroxysmal atrial fibrillation Status: Acute Assessment and Plan: rate is controlled. Eliquis held during admission given anemia, however resumed on discharge is there was no active bleeding. Continue home diltiazem (7) Gastroesophageal reflux disease: Code(s): K21.9 - Gastro-esophageal reflux disease without esophagitis Status: Acute Assessment and Plan: Continue PPI. (8) Weight loss: Code(s): R63.4 - Abnormal weight loss Status: Acute Assessment and Plan: Patient reports approximately 70 lb unintentional weight loss over the past 10 months. patient endorses poor appetite and decreased p.o. intake. Patient noted to have moderate malnutrition. Malignancy not excludable, however no obvious etiology on CT of the chest/abdomen/ pelvis. Patient reportedly recently had EGD and colonoscopy with no concerning findings. Continue outpatient follow-up with PCP. Patient evaluated by dietitian during admission and educated on adequate nutrition (9
[2022-06-16 16:18] LABS: Glucose Point of Care 173 mg/dl (65-105)
[2022-06-16 16:26] LABS: EDCOVIDSCREEN Negative (Negative)
[2022-06-16 19:45] LABS: Osmolality, Urine 667 mOsm/kg (50-1200)
[2022-06-16 23:19] LABS: Vitamin D 1,25 (OH)2 Total 11 pg/mL (18-72); Vitamin D2 1,25 (OH)2 <8 pg/mL; Vitamin D3 1,25 (OH)2 11 pg/mL
[2022-06-18 19:33] LABS: Parathyroid Hormone Related Pr 34 pg/mL (11-20)
[2022-06-19 15:43] LABS: Calcium/Creatinine Ratio, Ur 39 mg/g creat (10-320); Urine Calcium, Random 2.2 mg/dL (***)
[2022-06-19 20:39] LABS: Creatinine, Random Urine 61 mg/dL (20-275); Total Protein/Creatinine Ratio 98 mg/g creat (24-184)
[2022-06-21 16:02] LABS: Parathyroid Hormone Related Pr 31 pg/mL (11-20)
[2022-06-23 15:56] LABS: Urine Creatinine, Random 57 mg/dL
== END 2022-06-16 18:47 ==
LOC: ANHED 17:27 → ANH3MEDSUR 18:55
PROVIDERS: Emergency Medicine; Internal Medicine Nephrology; Nurse Practitioner; Physician Assistant; Urology; Admitting Provider Student in an Organized Health Care Education/Training Program; Emergency Provider Emergency Medicine; PCP Internal Medicine Infectious Disease; Visit Provider Physician Assistant
PROC: 0TJB8ZZ Inspection of Bladder, Via Natural or Artificial Opening Endoscopic (ICD-10-PCS; CPT 52000; principal; 2022-06-16 16:15)
DX: D64.9 Anemia, unspecified (principal); N32.89 Other specified disorders of bladder; R53.1 Weakness; I12.9 Hypertensive chronic kidney disease with stage 1 through stage 4 chronic kidney disease, or unspecified chronic kidney disease; E11.22 Type 2 diabetes mellitus with diabetic chronic kidney disease; N18.30 Chronic kidney disease, stage 3 unspecified; N17.9 Acute kidney failure, unspecified; F41.9 Anxiety disorder, unspecified; E83.52 Hypercalcemia; I25.10 Atherosclerotic heart disease of native coronary artery without angina pectoris; Z95.5 Presence of coronary angioplasty implant and graft; K21.9 Gastro-esophageal reflux disease without esophagitis; M10.9 Gout, unspecified; G47.33 Obstructive sleep apnea (adult) (pediatric); N32.81 Overactive bladder; I48.0 Paroxysmal atrial fibrillation; R63.4 Abnormal weight loss; Z68.34 Body mass index [BMI] 34.0-34.9, adult; M48.00 Spinal stenosis, site unspecified; R91.8 Other nonspecific abnormal finding of lung field; R93.41 Abnormal radiologic findings on diagnostic imaging of renal pelvis, ureter, or bladder; I99.8 Other disorder of circulatory system; E53.8 Deficiency of other specified B group vitamins; Z95.0 Presence of cardiac pacemaker; Z87.891 Personal history of nicotine dependence; Z79.82 Long term (current) use of aspirin; Z79.01 Long term (current) use of anticoagulants; Z79.4 Long term (current) use of insulin; Z79.899 Other long term (current) drug therapy; Z79.1 Long term (current) use of non-steroidal anti-inflammatories (NSAID); Z79.891 Long term (current) use of opiate analgesic; D64.89 Other specified anemias; Z20.822 Contact with and (suspected) exposure to COVID-19
CPT/HCPCS: 52000; 36415; 36430; 71250; 74176; 76775; 80048; 80053; 81003; 82274; 82310; 82330; 82550; 82570; 82607; 82652; 82728; 82746; 82948; 83036; 83519; 83540; 83550; 83735; 83935; 83970; 84100; 84155; 84156; 84165; 84166; 84300; 84443; 84466; 84540; 85014; 85018; 85025; 85027; 85046; 85055; 85610; 85730; 86850; 86900; 86901; 86923; 87426; 94660; 96360; 96361; 99285; A9270; C9803; G0378; J0690; J2704; J7030; J7120; P9016